=== PATIENT | female | born 1985 | race Hispanic/Latino ===

== ENCOUNTER 2016-09-14 18:23 | Inpatient (IN) | payer OTHER ==
[~2016-09-14] VITALS: Ht 154.9 cm; Wt 54.1 kg
[~2016-09-14 18:23] MED LIST: AUGMENTIN875 MG PO; CEPHALEXIN500 MG PO; HYDROCODON-ACE1 EAC7 PO; LANTUS 10100 UNITS/ SC; METFORMIN HCL1000 M3 PO; METFORMIN HCL500 MG PO; NOVOLIN N100 UNITS/ SC; NOVOLOG PE100 UNITS/ SC; UNABLEOBTAIN; VIBRAMYCIN100 MG PO; ZOFRAN4 MG PO
[2016-09-14 19:01] LABS: MCH 27.5 PG (29.0-34.0); MCHC 34.2 G/DL (30.0-36.0); MCV 80.4 FL (83-99); MEAN PLAT.VOLUME 11.3 uM^3 (9.5-12.4); PLATELET COUNT 321 K/uL (156-360); RBC DIS.WIDTH-CV 12.7 % (11.8-14.6); RBC DIS.WIDTH-SD 36.5 % (39-53); RED BLOOD COUNT 4.48 M/uL (3.80-5.20); WHITE BLOOD COUNT 13.7 K/uL (4.1-10.2)
[2016-09-14 19:02] LABS: CARBON DIOXIDE (BICARBONATE) 32.6 MEQ/L (20-31)
[2016-09-14 19:08] LABS: CHLORIDE 91 mEq/L (99-109)
[2016-09-14 19:09] LABS: POTASSIUM 3.5 mEq/L (3.7-5.4); SODIUM 130 mEq/L (136-147)
[2016-09-14 19:12] LABS: ANION GAP 15 MEQ/L (2-14)
[2016-09-14 19:13] LABS: TOTAL BILIRUBIN 0.3 mg/dL (0.0-1.0)
[2016-09-14 19:14] LABS: ALKALINE PHOSPHATASE 368 IU/L (3-129)
[2016-09-14 19:14] LABS: ADD MIUA? YES; BILIRUBIN NEGATIVE; BLOOD MODERATE; COLOR YELLOW ((YELLOW)); GLUCOSE (STRIP) >=500; KETONES 20; LEUKOCYTES NEGATIVE; NITRITE NEGATIVE; PROTEIN (STRIP) >=500; SPECIFIC GRAVITY 1.017 (1.000-1.030); UROBILINOGEN 0.2 MG/DL (0.2-1.0)
[2016-09-14 19:15] LABS: GFR ESTIMATE (CALCULATED) 35 mL/min/
[2016-09-14 19:16] LABS: UREA NITROGEN (BUN) 40 mg/dL (9-23)
[2016-09-14 19:19] LABS: GLUCOSE 740 mg/dL (70-99)
[2016-09-14 19:23] LABS: QUANTITATIVE HCG < 4.0 MIU/ML
[2016-09-14 19:23] LABS: BACTERIA RARE /HPF; EPITHELIAL CELLS 1+ /HPF; HYALINE CASTS 0-5 /LPF; MUCUS TRACE /LPF; RED BLOOD CELLS TNTC /HPF (0-5); WHITE BLOOD CELLS 15-20 /HPF (0-5)
[2016-09-14 21:31] LABS: CHLORIDE 95 mEq/L (99-109); POTASSIUM 2.9 mEq/L (3.7-5.4); SODIUM 134 mEq/L (136-147)
[2016-09-14 21:35] LABS: ANION GAP 12 MEQ/L (2-14)
[2016-09-14 21:37] LABS: GFR ESTIMATE (CALCULATED) 40 mL/min/
[2016-09-14 21:38] LABS: UREA NITROGEN (BUN) 38 mg/dL (9-23)
[2016-09-14 21:41] LABS: GLUCOSE 436 mg/dL (70-99)
[2016-09-15] VITALS (7 sets, daily range): BP systolic 93–172; BP diastolic 52–80
[2016-09-15 06:09] LABS: POINT-OF-CARE METER ID UU14162508
[2016-09-15 06:59] LABS: EOSINOPHIL (%) 0.6 % (0-5); EOSINOPHIL COUNT 0.1 K/uL (0-0.3); HEMATOCRIT 28.9 % (36.0-46.0); IMMATURE GRANULOCYTE (%) 0.3 % (0.0-0.7); INSTRUMENT ABS NEUTROPHIL CT 7.9 K/uL; LYMPHOCYTE COUNT 2.2 K/uL (1.0-2.8); MCH 27.2 PG (29.0-34.0); MCHC 33.6 G/DL (30.0-36.0); MCV 81.2 FL (83-99); MEAN PLAT.VOLUME 11.2 uM^3 (9.5-12.4); MONOCYTE (%) 7.8 % (3-12); MONOCYTE COUNT 0.9 K/uL (0-0.8); NEUTROPHIL COUNT 7.9 K/uL (1.8-6.4); PLATELET COUNT 293 K/uL (156-360); RBC DIS.WIDTH-CV 12.7 % (11.8-14.6); RBC DIS.WIDTH-SD 37.4 % (39-53); WHITE BLOOD COUNT 11.2 K/uL (4.1-10.2)
[2016-09-15 07:15] LABS: ANION GAP 8 MEQ/L (2-14); CHLORIDE 105 MEQ/L (99-109); GFR ESTIMATE (CALCULATED) 51 mL/min/; POTASSIUM 3.3 MEQ/L (3.7-5.4); SAMPLE HEMOLYSIS CHECK 0; SAMPLE ICTERIC CHECK 0; SAMPLE LIPEMIA CHECK 0; UREA NITROGEN (BUN) 34 mg/dL (9-23)
[2016-09-15 07:17] LABS: GLUCOSE 126 mg/dL (70-99); SODIUM 141 MEQ/L (136-147)
[2016-09-15 07:24] LABS: RED BLOOD COUNT 3.56 M/uL (3.80-5.20)
[2016-09-15 11:37] LABS: POINT-OF-CARE METER ID UU14162508
[2016-09-15 11:40] LABS: POINT-OF-CARE METER ID UU13113702; POINT-OF-CARE USER ID 611181311
[2016-09-15 11:40] LABS: POINT-OF-CARE METER ID UU13113778
[2016-09-15 14:43] LABS: POINT-OF-CARE METER ID UU14162508
[2016-09-15 16:51] LABS: MAGNESIUM 1.6 mg/dl (1.3-2.7)
[2016-09-15 21:33] LABS: POINT-OF-CARE METER ID UU14162508
[2016-09-16] VITALS (8 sets, daily range): BP systolic 76–199; BP diastolic 50–99
[2016-09-16 02:44] LABS: POINT-OF-CARE METER ID UU14162508
[2016-09-16 07:11] LABS: EOSINOPHIL (%) 1.1 % (0-5); EOSINOPHIL COUNT 0.1 K/uL (0-0.3); HEMATOCRIT 28.9 % (36.0-46.0); IMMATURE GRANULOCYTE (%) 0.3 % (0.0-0.7); INSTRUMENT ABS NEUTROPHIL CT 6.2 K/uL; MCH 27.7 PG (29.0-34.0); MCHC 33.2 G/DL (30.0-36.0); MCV 83.3 FL (83-99); MONOCYTE (%) 6.3 % (3-12); MONOCYTE COUNT 0.6 K/uL (0-0.8); NEUTROPHIL (%) 69.6 % (45-76); NEUTROPHIL COUNT 6.2 K/uL (1.8-6.4); PLATELET COUNT 277 K/uL (156-360); RBC DIS.WIDTH-CV 13.2 % (11.8-14.6); RBC DIS.WIDTH-SD 39.7 % (39-53); RED BLOOD COUNT 3.47 M/uL (3.80-5.20); WHITE BLOOD COUNT 8.9 K/uL (4.1-10.2)
[2016-09-16 07:31] LABS: ANION GAP 10 MEQ/L (2-14); CHLORIDE 104 MEQ/L (99-109); GFR ESTIMATE (CALCULATED) 37 mL/min/; GLUCOSE 114 mg/dL (70-99); IRON 44 MCG/DL (35-150); POTASSIUM 3.1 MEQ/L (3.7-5.4); SAMPLE HEMOLYSIS CHECK 0; SAMPLE ICTERIC CHECK 0; SAMPLE LIPEMIA CHECK 0; SODIUM 140 MEQ/L (136-147); UREA NITROGEN (BUN) 29 mg/dL (9-23)
[2016-09-16 07:32] LABS: C3 COMPLEMENT 142 MG/DL (58-170); C4 COMPLEMENT 35 MG/DL (10-40)
[2016-09-16 09:58] LABS: HBSG INDEX 0.27; HPCA INDEX 0.15
[2016-09-16 09:59] LABS: AHBS INDEX 13.56; HEPATITIS B SURFACE ANTIBODY REACTIVE
[2016-09-16 10:11] LABS: POINT-OF-CARE USER ID 612031306
[2016-09-16 13:27] LABS: URINE TOTAL PROTEIN 169 MG/DL (0-10)
[2016-09-16 14:27] LABS: POINT-OF-CARE USER ID 612031306
[2016-09-16 14:57] LABS: IFE GEL NO. 53-7
[2016-09-16 18:07] LABS: POINT-OF-CARE METER ID UU14162508
[2016-09-16 22:09] LABS: POINT-OF-CARE METER ID UU14162508
[2016-09-17 03:55] VITALS: BP 121/63
[2016-09-17 07:08] LABS: EOSINOPHIL (%) 0.5 % (0-5); EOSINOPHIL COUNT 0.1 K/uL (0-0.3); IMMATURE GRANULOCYTE (%) 0.5 % (0.0-0.7); IMMATURE GRANULOCYTE COUNT 0.1 K/uL; INSTRUMENT ABS NEUTROPHIL CT 6.9 K/uL; LYMPHOCYTE COUNT 2.8 K/uL (1.0-2.8); MCH 27.3 PG (29.0-34.0); MCHC 31.9 G/DL (30.0-36.0); MCV 85.5 FL (83-99); MEAN PLAT.VOLUME 11.1 uM^3 (9.5-12.4); MONOCYTE (%) 8.2 % (3-12); MONOCYTE COUNT 0.9 K/uL (0-0.8); NEUTROPHIL (%) 64.3 % (45-76); NEUTROPHIL COUNT 6.9 K/uL (1.8-6.4); PLATELET COUNT 352 K/uL (156-360); RBC DIS.WIDTH-CV 13.6 % (11.8-14.6); RBC DIS.WIDTH-SD 42.2 % (39-53); WHITE BLOOD COUNT 10.7 K/uL (4.1-10.2)
[2016-09-17 07:13] LABS: RED BLOOD COUNT 4.21 M/uL (3.80-5.20)
[2016-09-17 07:29] LABS: ANION GAP 7 MEQ/L (2-14); CHLORIDE 105 MEQ/L (99-109); GFR ESTIMATE (CALCULATED) 43 mL/min/; GLUCOSE 95 mg/dL (70-99); SAMPLE HEMOLYSIS CHECK 0; SAMPLE ICTERIC CHECK 0; SAMPLE LIPEMIA CHECK 0; SODIUM 137 MEQ/L (136-147); UREA NITROGEN (BUN) 23 mg/dL (9-23)
[2016-09-17 07:35] LABS: POTASSIUM 4.6 MEQ/L (3.7-5.4)
[2016-09-17 09:03] VITALS: BP 161/97
[2016-09-17 09:15] LABS: MYELOPEROXIDASE ANTIBODY (MPO) <1.0 AI (<1.0); PROTEINASE-3 ANTIBODY+ <1.0 AI (<1.0)
[2016-09-17 11:30] VITALS: BP 163/92
[2016-09-17 15:55] VITALS: BP 157/98
[2016-09-17] MEDS ORDERED: CIPRO500 MG PO (17:13)
[2016-09-17] MEDS ORDERED: NOVOLOG PE100 UNITS/ SC (17:13)
[2016-09-17] MEDS ORDERED: LEVEMIR100 UNIT/2 SC (17:13)
[2016-09-17] MEDS ORDERED: AMLODIPINE BESYL5 MG PO (17:13)
[2016-09-18 14:47] LABS: IFE GEL NO. 54-1
[2016-09-20 21:39] LABS: Cryoglobulin, Qualitative None Detected (None Detected)
== END 2016-09-17 19:34 | disposition home or self-care (01) | DRG 690 ==
LOC: EME 18:23 → 2EAST 22:25 → EDOF 22:25 → 2EAST 09-15
PROVIDERS: Emergency Medicine; Hospitalist; Internal Medicine
DX: N10 Acute pyelonephritis (principal); N18.3 Chronic kidney disease, stage 3 (moderate); I12.9 Hypertensive chronic kidney disease with stage 1 through stage 4 chronic kidney disease, or unspecified chronic kidney disease; E87.6 Hypokalemia; Z91.14 Patient's other noncompliance with medication regimen; N17.9 Acute kidney failure, unspecified; E87.1 Hypo-osmolality and hyponatremia; E10.22 Type 1 diabetes mellitus with diabetic chronic kidney disease; E10.65 Type 1 diabetes mellitus with hyperglycemia; D50.9 Iron deficiency anemia, unspecified; N28.1 Cyst of kidney, acquired; F32.9 Major depressive disorder, single episode, unspecified; E86.0 Dehydration; R80.9 Proteinuria, unspecified; N20.0 Calculus of kidney; N12 Tubulo-interstitial nephritis, not specified as acute or chronic
CPT/HCPCS: 74176; 76770; 80048; 80048 91; 80053; 80069; 81003; 82010; 82436; 82570; 82595 90; 82803; 82948; 83021 90; 83540; 83735; 84133; 84156; 84300; 84466; 84702; 85025; 85027; 86021 90; 86038; 86160; 86334; 86335; 86706; 86803; 87040; 87086; 87340; 93306; 93970; 93975; 99281; 99284; J0360; J0692; J0696; J1644; J1815; J2270; J2405; J2765; J3475; J3480; J7030; J7050; J7120

== ENCOUNTER 2017-05-08 23:33 | Emergency (ER) | payer SELFPAY ==
[~2017-05-08] VITALS: Ht 147.3 cm; Wt 57.6 kg
[~2017-05-08 23:33] MED LIST changes: +AMLODIPINE BESYL5 MG PO; +CIPRO500 MG PO; +LEVEMIR100 UNIT/2 SC
[2017-05-09] MEDS ORDERED: BACTRIM,SEPT1 TABLET PO (00:17)
[2017-05-09] MEDS ORDERED: ULTRACET1 TABLET PO (00:17)
[2017-05-09 00:22] VITALS: BP 193/122
== END 2017-05-09 00:53 | disposition home or self-care (01) ==
LOC: EME 23:33 → EXP 23:33
DX: L98.9 Disorder of the skin and subcutaneous tissue, unspecified (principal); E11.65 Type 2 diabetes mellitus with hyperglycemia; E11.22 Type 2 diabetes mellitus with diabetic chronic kidney disease; I12.9 Hypertensive chronic kidney disease with stage 1 through stage 4 chronic kidney disease, or unspecified chronic kidney disease; N18.9 Chronic kidney disease, unspecified; Z79.4 Long term (current) use of insulin; R51 Headache
CPT/HCPCS: 99281; 99284

== ENCOUNTER 2017-05-15 19:23 | Emergency (ER) | payer SELFPAY ==
[~2017-05-15] VITALS: Ht 144.8 cm; Wt 54.5 kg
[~2017-05-15 19:23] MED LIST changes: +BACTRIM,SEPT1 TABLET PO; +ULTRACET1 TABLET PO
[2017-05-15] MEDS ORDERED: ZOFRAN ODT4 MG PO (20:58)
[2017-05-15] MEDS ORDERED: VIBRAMYCIN100 MG PO (20:58)
[2017-05-15 21:02] LABS: BASOPHIL (%) 0.3 % (0-1); BASOPHIL COUNT 0.1 K/uL (0-0.1); EOSINOPHIL (%) 0.7 % (0-5); EOSINOPHIL COUNT 0.1 K/uL (0-0.3); HEMATOCRIT 28.5 % (36.0-46.0); HEMOGLOBIN 9.8 G/DL (11.9-15.5); IMMATURE GRANULOCYTE (%) 0.8 % (0.0-0.7); LYMPHOCYTE (%) 13.9 % (15-42); LYMPHOCYTE COUNT 2.6 K/uL (1.0-2.8); MCH 27.4 PG (29.0-34.0); MCHC 34.4 G/DL (30.0-36.0); MCV 79.6 FL (83-99); MONOCYTE (%) 4.4 % (3-12); MONOCYTE COUNT 0.8 K/uL (0-0.8); NEUTROPHIL (%) 79.9 % (45-76); NEUTROPHIL COUNT 14.9 K/uL (1.8-6.4); PLATELET COUNT 431 K/uL (156-360); RBC DIS.WIDTH-CV 12.5 % (11.8-14.6); RBC DIS.WIDTH-SD 35.8 % (39-53); RED BLOOD COUNT 3.58 M/uL (3.80-5.20); WHITE BLOOD COUNT 18.7 K/uL (4.1-10.2)
[2017-05-15 21:10] LABS: ALBUMIN 2.8 g/dL (3.2-4.8); CHLORIDE 86 mEq/L (99-109); SODIUM 128 mEq/L (136-147)
[2017-05-15 21:12] LABS: GLUCOSE 322 mg/dL (70-99); TOTAL PROTEIN 7.5 g/dL (6.4-8.3)
[2017-05-15 21:14] LABS: TOTAL BILIRUBIN 0.2 mg/dL (0.0-1.0)
[2017-05-15 21:16] LABS: ALKALINE PHOSPHATASE 323 IU/L (3-129); CREATININE 7.3 mg/dL (0.6-1.3); GFR ESTIMATE (CALCULATED) 7 mL/min/
[2017-05-15 21:17] LABS: UREA NITROGEN (BUN) 87 mg/dL (9-23)
[2017-05-15 21:18] LABS: AST (GOT) 13 IU/L (2-34)
[2017-05-15 21:19] LABS: ALT (GPT) 15 IU/L (3-49); LIPASE 126 U/L (1.0-51.0)
[2017-05-15 21:25] LABS: QUANTITATIVE HCG < 4.0 MIU/ML
[2017-05-15 21:27] VITALS: BP 129/76
[2017-05-15 22:02] LABS: APPEARANCE SL.HAZY ((CLEAR)); BILIRUBIN NEGATIVE; BLOOD SMALL; COLOR YELLOW ((YELLOW)); GLUCOSE (STRIP) >=500; KETONES NEGATIVE; LEUKOCYTES SMALL; NITRITE NEGATIVE; PROTEIN (STRIP) >=500; SPECIFIC GRAVITY 1.008 (1.000-1.030); UROBILINOGEN 0.2 MG/DL (0.2-1.0)
[2017-05-15 22:07] LABS: BACTERIA RARE /HPF; EPITHELIAL CELLS 1+ /HPF; MUCUS TRACE /LPF; RED BLOOD CELLS 0-5 /HPF (0-5); WHITE BLOOD CELLS 20-30 /HPF (0-5)
== END 2017-05-15 21:31 | disposition home or self-care (01) ==
LOC: EME 19:23
PROVIDERS: Physician Assistant
PROC: 0H90XZZ Drainage of Scalp Skin, External Approach (ICD-10-PCS; principal; 2017-05-15)
DX: L02.811 Cutaneous abscess of head [any part, except face] (principal); R11.2 Nausea with vomiting, unspecified; R10.13 Epigastric pain; I12.9 Hypertensive chronic kidney disease with stage 1 through stage 4 chronic kidney disease, or unspecified chronic kidney disease; E11.22 Type 2 diabetes mellitus with diabetic chronic kidney disease; N18.9 Chronic kidney disease, unspecified
CPT/HCPCS: 80053; 81003; 83690; 84702; 85025; 99281; 99285

== ENCOUNTER 2017-05-20 12:52 | Inpatient (IN) | payer OTHER ==
[~2017-05-20] VITALS: Ht 160 cm; Wt 56.8 kg
[2017-05-20] VITALS (7 sets, daily range): BP systolic 71–154; BP diastolic 35–78
[~2017-05-20 12:52] MED LIST changes: +ZOFRAN ODT4 MG PO
[2017-05-20 14:12] LABS: HEMATOCRIT 30.2 % (36.0-46.0); MCH 27.2 PG (29.0-34.0); MCHC 33.1 G/DL (30.0-36.0); MCV 82.3 FL (83-99); PLATELET COUNT 501 K/uL (156-360); RBC DIS.WIDTH-CV 12.5 % (11.8-14.6); RED BLOOD COUNT 3.67 M/uL (3.80-5.20); WHITE BLOOD COUNT 13.8 K/uL (4.1-10.2)
[2017-05-20 14:17] LABS: CHLORIDE 91 mEq/L (99-109); POTASSIUM 3.6 mEq/L (3.7-5.4); SODIUM 140 mEq/L (136-147)
[2017-05-20 14:18] LABS: APPEARANCE SL.HAZY ((CLEAR)); BILIRUBIN NEGATIVE; BLOOD NEGATIVE; COLOR YELLOW ((YELLOW)); GLUCOSE (STRIP) >=500; KETONES 20; LEUKOCYTES NEGATIVE; NITRITE NEGATIVE; PROTEIN (STRIP) >=500; SPECIFIC GRAVITY 1.015 (1.000-1.030); UROBILINOGEN 0.2 MG/DL (0.2-1.0)
[2017-05-20 14:22] LABS: CREATININE 6.5 mg/dL (0.6-1.3); GFR ESTIMATE (CALCULATED) 8 mL/min/
[2017-05-20 14:23] LABS: UREA NITROGEN (BUN) 91 mg/dL (9-23)
[2017-05-20 14:26] LABS: GLUCOSE 579 mg/dL (70-99)
[2017-05-20 14:30] LABS: QUANTITATIVE HCG < 4.0 MIU/ML
[2017-05-20 14:32] LABS: BACTERIA RARE /HPF; EPITHELIAL CELLS 1+ /HPF; HYALINE CASTS 0-5 /LPF; MUCUS TRACE /LPF; RED BLOOD CELLS 0-5 /HPF (0-5); UCUL ADDED? NO; WHITE BLOOD CELLS 0-5 /HPF (0-5)
[2017-05-20 15:18] LABS: CARBON DIOXIDE (BICARBONATE) 32.6 MEQ/L (20-31)
[2017-05-20 15:19] LABS: TOTAL PROTEIN 7.7 g/dL (6.4-8.3)
[2017-05-20 15:20] LABS: TOTAL BILIRUBIN 0.2 mg/dL (0.0-1.0)
[2017-05-20 15:21] LABS: ALKALINE PHOSPHATASE 320 IU/L (3-129)
[2017-05-20 15:24] LABS: AST (GOT) 17 IU/L (2-34); DIRECT BILIRUBIN 0.1 mg/dL (0.0-0.3)
[2017-05-20 15:25] LABS: ALT (GPT) 21 IU/L (3-49); LIPASE 30 U/L (1.0-51.0)
[2017-05-20 17:59] LABS: CARBON DIOXIDE (BICARBONATE) 27.9 MEQ/L (20-31)
[2017-05-20 18:12] LABS: CHLORIDE 100 mEq/L (99-109); POTASSIUM 3.1 mEq/L (3.7-5.4); SODIUM 143 mEq/L (136-147)
[2017-05-20 18:15] LABS: GLUCOSE 531 mg/dL (70-99)
[2017-05-20 18:18] LABS: CREATININE 5.6 mg/dL (0.6-1.3); GFR ESTIMATE (CALCULATED) 9 mL/min/
[2017-05-20 18:19] LABS: UREA NITROGEN (BUN) 86 mg/dL (9-23)
[2017-05-20 18:38] LABS: MAGNESIUM 1.2 mg/dL (1.3-2.7)
[2017-05-20 19:08] LABS: Estimated Average Glucose 303 mg/dL (70-123); HEMOGLOBIN A1c (GLYCOHEMOGLOB) 12.2 % HGB (Below 5.7)
[2017-05-21] VITALS (24 sets, daily range): BP systolic 104–181; BP diastolic 59–106
[2017-05-21 00:49] LABS: POTASSIUM 3.6 mEq/L (3.7-5.4); SODIUM 148 mEq/L (136-147)
[2017-05-21 00:54] LABS: GFR ESTIMATE (CALCULATED) 11 mL/min/; PHOSPHORUS 3.8 mg/dL (2.5-4.9)
[2017-05-21 00:55] LABS: UREA NITROGEN (BUN) 74 mg/dL (9-23)
[2017-05-21 01:02] LABS: CHLORIDE 111 mEq/L (99-109); GLUCOSE 92 mg/dL (70-99)
[2017-05-21 04:27] LABS: BASOPHIL (%) 0.2 % (0-1); BASOPHIL COUNT 0.1 K/uL (0-0.1); EOSINOPHIL (%) 0 % (0-5); HEMATOCRIT 25.5 % (36.0-46.0); HEMOGLOBIN 8.4 G/DL (11.9-15.5); IMMATURE GRANULOCYTE (%) 0.8 % (0.0-0.7); LYMPHOCYTE (%) 5.2 % (15-42); LYMPHOCYTE COUNT 1.6 K/uL (1.0-2.8); MCH 27.6 PG (29.0-34.0); MCHC 32.9 G/DL (30.0-36.0); MCV 83.9 FL (83-99); MONOCYTE (%) 4.7 % (3-12); MONOCYTE COUNT 1.4 K/uL (0-0.8); NEUTROPHIL (%) 89.1 % (45-76); NEUTROPHIL COUNT 26.3 K/uL (1.8-6.4); PLATELET COUNT 364 K/uL (156-360); RBC DIS.WIDTH-CV 12.8 % (11.8-14.6); RBC DIS.WIDTH-SD 39.1 % (39-53); RED BLOOD COUNT 3.04 M/uL (3.80-5.20); WHITE BLOOD COUNT 29.6 K/uL (4.1-10.2)
[2017-05-21 04:34] LABS: ALBUMIN 2.2 g/dL (3.2-4.8); CHLORIDE 109 mEq/L (99-109); POTASSIUM 3.4 mEq/L (3.7-5.4); SODIUM 144 mEq/L (136-147)
[2017-05-21 04:40] LABS: CREATININE 4.8 mg/dL (0.6-1.3); GFR ESTIMATE (CALCULATED) 11 mL/min/; PHOSPHORUS 3.9 mg/dL (2.5-4.9)
[2017-05-21 04:41] LABS: UREA NITROGEN (BUN) 69 mg/dL (9-23)
[2017-05-21 04:42] LABS: GLUCOSE 197 mg/dL (70-99); MAGNESIUM 2.2 mg/dL (1.3-2.7)
[2017-05-21 08:23] LABS: CHLORIDE 111 MEQ/L (99-109); POTASSIUM 3.2 MEQ/L (3.7-5.4); SODIUM 146 MEQ/L (136-147)
[2017-05-21 08:29] LABS: CREATININE 4.3 MG/DL (0.6-1.3); GFR ESTIMATE (CALCULATED) 13 mL/min/; GLUCOSE 165 mg/dL (70-99); PHOSPHORUS 3.6 mg/dL (2.5-4.9); UREA NITROGEN (BUN) 66 mg/dL (9-23)
[2017-05-21 13:12] LABS: CHLORIDE 108 MEQ/L (99-109); POTASSIUM 3.3 MEQ/L (3.7-5.4); SODIUM 143 MEQ/L (136-147)
[2017-05-21 13:17] LABS: GFR ESTIMATE (CALCULATED) 14 mL/min/; GLUCOSE 170 mg/dL (70-99); PHOSPHORUS 3.6 mg/dL (2.5-4.9); UREA NITROGEN (BUN) 61 mg/dL (9-23)
[2017-05-21 15:56] LABS: CHLORIDE 108 MEQ/L (99-109); POTASSIUM 2.9 MEQ/L (3.7-5.4); SODIUM 140 MEQ/L (136-147)
[2017-05-21 16:02] LABS: CREATININE 3.9 MG/DL (0.6-1.3); GFR ESTIMATE (CALCULATED) 14 mL/min/; GLUCOSE 148 mg/dL (70-99); PHOSPHORUS 3.2 mg/dL (2.5-4.9); UREA NITROGEN (BUN) 56 mg/dL (9-23)
[2017-05-21 17:13] LABS: IRON 85 MCG/DL (35-150); TRANSFERRIN (TIBC) 118.3 mg/dL (215-380); TRANSFERRIN SATUR. 72 % (20-55)
[2017-05-21 20:11] LABS: CHLORIDE 108 MEQ/L (99-109); SODIUM 139 MEQ/L (136-147)
[2017-05-21 20:16] LABS: CREATININE 3.7 MG/DL (0.6-1.3); GFR ESTIMATE (CALCULATED) 15 mL/min/; GLUCOSE 163 mg/dL (70-99); PHOSPHORUS 3.3 mg/dL (2.5-4.9); UREA NITROGEN (BUN) 52 mg/dL (9-23)
[2017-05-22] VITALS (23 sets, daily range): BP systolic 108–193; BP diastolic 56–95
[2017-05-22 01:17] LABS: CHLORIDE 107 mEq/L (99-109); POTASSIUM 3.4 mEq/L (3.7-5.4); SODIUM 138 mEq/L (136-147)
[2017-05-22 01:19] LABS: GLUCOSE 177 mg/dL (70-99)
[2017-05-22 01:23] LABS: CREATININE 3.8 mg/dL (0.6-1.3); GFR ESTIMATE (CALCULATED) 15 mL/min/
[2017-05-22 01:24] LABS: UREA NITROGEN (BUN) 47 mg/dL (9-23)
[2017-05-22 06:25] LABS: CHLORIDE 108 MEQ/L (99-109); CREATININE 3.9 MG/DL (0.6-1.3); GFR ESTIMATE (CALCULATED) 14 mL/min/; MAGNESIUM 1.4 mg/dl (1.3-2.7); PHOSPHORUS 3.1 mg/dL (2.5-4.9); SODIUM 140 MEQ/L (136-147); UREA NITROGEN (BUN) 43 mg/dL (9-23)
[2017-05-22 06:26] LABS: GLUCOSE 88 mg/dL (70-99)
[2017-05-22 15:54] LABS: BASOPHIL (%) 0.4 % (0-1); BASOPHIL COUNT 0.1 K/uL (0-0.1); EOSINOPHIL (%) 0.5 % (0-5); EOSINOPHIL COUNT 0.1 K/uL (0-0.3); HEMATOCRIT 29.2 % (36.0-46.0); HEMOGLOBIN 9.1 G/DL (11.9-15.5); IMMATURE GRANULOCYTE (%) 0.9 % (0.0-0.7); LYMPHOCYTE (%) 15.9 % (15-42); LYMPHOCYTE COUNT 2.4 K/uL (1.0-2.8); MCH 27.2 PG (29.0-34.0); MCHC 31.2 G/DL (30.0-36.0); MCV 87.4 FL (83-99); MONOCYTE (%) 5.3 % (3-12); MONOCYTE COUNT 0.8 K/uL (0-0.8); NEUTROPHIL COUNT 11.7 K/uL (1.8-6.4); RBC DIS.WIDTH-CV 12.7 % (11.8-14.6); RED BLOOD COUNT 3.34 M/uL (3.80-5.20); WHITE BLOOD COUNT 15.2 K/uL (4.1-10.2)
[2017-05-22 16:28] LABS: CHLORIDE 108 MEQ/L (99-109); CREATININE 3.5 MG/DL (0.6-1.3); GFR ESTIMATE (CALCULATED) 16 mL/min/; PHOSPHORUS 3.4 mg/dL (2.5-4.9); SODIUM 136 MEQ/L (136-147); UREA NITROGEN (BUN) 38 mg/dL (9-23)
[2017-05-22 16:29] LABS: GLUCOSE 162 mg/dL (70-99); MAGNESIUM 2.2 mg/dl (1.3-2.7); POTASSIUM 4.3 MEQ/L (3.7-5.4)
[2017-05-22 16:41] LABS: ANISOCYTOSIS 1+; ATYPICAL LYMPHOCYTE 0.9 %; BAND NEUTROPHILS 1.7 % (0-8.0); EOSINOPHIL ABS CT 0.1; EOSINOPHILS 0.8 % (0-5.0); HYPOCHROMASIA 1+; LYMPHOCYTES 9.4 % (15.0-45.0); MICROCYTOSIS 1+; MONOCYTES 3.4 % (0-9.0); OVALOCYTES 1+; PLATELET CLUMPS PRESENT - PLATELET COUNT APPEARS ADQ.; PLATELET COUNT 348 K/uL (156-360); POIKILOCYTOSIS 1+; SEG.NEUTROPHILS 83.8 % (46.0-76.0)
[2017-05-23] VITALS (19 sets, daily range): BP systolic 119–191; BP diastolic 66–95
[2017-05-23 04:52] LABS: ALBUMIN 2.2 g/dL (3.2-4.8)
[2017-05-23 04:53] LABS: CHLORIDE 108 mEq/L (99-109); SODIUM 136 mEq/L (136-147)
[2017-05-23 04:58] LABS: PHOSPHORUS 3.5 mg/dL (2.5-4.9)
[2017-05-23 04:59] LABS: CREATININE 3.2 mg/dL (0.6-1.3); GFR ESTIMATE (CALCULATED) 18 mL/min/
[2017-05-23 05:00] LABS: UREA NITROGEN (BUN) 32 mg/dL (9-23)
[2017-05-23 05:02] LABS: GLUCOSE 108 mg/dL (70-99); MAGNESIUM 1.6 mg/dL (1.3-2.7); POTASSIUM 3.4 mEq/L (3.7-5.4)
[2017-05-23] MEDS ORDERED: NOVOLIN N100 UNITS/ SC ×2 (09:26→09:27)
[2017-05-23 09:57] LABS: BASOPHIL (%) 0.3 % (0-1); EOSINOPHIL (%) 1.3 % (0-5); EOSINOPHIL COUNT 0.2 K/uL (0-0.3); HEMATOCRIT 27.4 % (36.0-46.0); HEMOGLOBIN 8.9 G/DL (11.9-15.5); IMMATURE GRANULOCYTE (%) 0.7 % (0.0-0.7); LYMPHOCYTE (%) 19.6 % (15-42); LYMPHOCYTE COUNT 2.3 K/uL (1.0-2.8); MCH 27.9 PG (29.0-34.0); MCHC 32.5 G/DL (30.0-36.0); MCV 85.9 FL (83-99); MONOCYTE (%) 5.6 % (3-12); MONOCYTE COUNT 0.7 K/uL (0-0.8); NEUTROPHIL (%) 72.5 % (45-76); NEUTROPHIL COUNT 8.4 K/uL (1.8-6.4); RBC DIS.WIDTH-CV 12.9 % (11.8-14.6); RBC DIS.WIDTH-SD 40.4 % (39-53); RED BLOOD COUNT 3.19 M/uL (3.80-5.20); WHITE BLOOD COUNT 11.6 K/uL (4.1-10.2)
[2017-05-23] MEDS ORDERED: HYDROCHLOROTHIA25 MG PO (10:29)
[2017-05-23] MEDS ORDERED: LISINOPRIL40 MG PO (10:30)
[2017-05-23 10:35] LABS: PLATELET CLUMPS PRESENT - PLATELET COUNT APPEARS ADQ.; PLATELET COUNT UNABLE TO REPORT K/uL (156-360)
[2017-05-24 00:20] VITALS: BP 114/53
[2017-05-24 04:35] VITALS: BP 124/69
[2017-05-24 08:00] VITALS: BP 180/77
[2017-05-24 09:42] LABS: HEMATOCRIT 26.6 % (36.0-46.0); HEMOGLOBIN 8.6 G/DL (11.9-15.5); MCHC 32.3 G/DL (30.0-36.0); MCV 86.6 FL (83-99); PLATELET COUNT 317 K/uL (156-360); RBC DIS.WIDTH-SD 41.2 % (39-53); RED BLOOD COUNT 3.07 M/uL (3.80-5.20); WHITE BLOOD COUNT 10.2 K/uL (4.1-10.2)
[2017-05-24 10:11] LABS: CHLORIDE 105 MEQ/L (99-109); CREATININE 3.2 MG/DL (0.6-1.3); GFR ESTIMATE (CALCULATED) 18 mL/min/; GLUCOSE 152 mg/dL (70-99); SODIUM 136 MEQ/L (136-147); UREA NITROGEN (BUN) 28 mg/dL (9-23)
[2017-05-24 10:19] LABS: MAGNESIUM 1.5 mg/dl (1.3-2.7); POTASSIUM 4.4 MEQ/L (3.7-5.4)
[2017-05-24 11:50] VITALS: BP 154/72
[2017-05-24] MEDS ORDERED: ZOFRAN4 MG PO (12:44)
[2017-05-24 16:00] VITALS: BP 121/64
[2017-05-24 20:19] VITALS: BP 114/64
[2017-05-25] VITALS (7 sets, daily range): BP systolic 102–140; BP diastolic 57–79
[2017-05-25 06:41] LABS: BASOPHIL (%) 0.4 % (0-1); EOSINOPHIL (%) 1.2 % (0-5); EOSINOPHIL COUNT 0.1 K/uL (0-0.3); HEMOGLOBIN 7.7 G/DL (11.9-15.5); IMMATURE GRANULOCYTE (%) 0.4 % (0.0-0.7); LYMPHOCYTE (%) 31.4 % (15-42); LYMPHOCYTE COUNT 3.4 K/uL (1.0-2.8); MCH 27.3 PG (29.0-34.0); MCHC 32.1 G/DL (30.0-36.0); MCV 85.1 FL (83-99); MONOCYTE (%) 6.4 % (3-12); MONOCYTE COUNT 0.7 K/uL (0-0.8); NEUTROPHIL (%) 60.2 % (45-76); NEUTROPHIL COUNT 6.5 K/uL (1.8-6.4); PLATELET COUNT 294 K/uL (156-360); RBC DIS.WIDTH-CV 12.9 % (11.8-14.6); RED BLOOD COUNT 2.82 M/uL (3.80-5.20); WHITE BLOOD COUNT 10.8 K/uL (4.1-10.2)
[2017-05-25 07:12] LABS: CHLORIDE 107 MEQ/L (99-109); CREATININE 3.1 MG/DL (0.6-1.3); GFR ESTIMATE (CALCULATED) 19 mL/min/; POTASSIUM 3.8 MEQ/L (3.7-5.4); SODIUM 139 MEQ/L (136-147); UREA NITROGEN (BUN) 29 mg/dL (9-23)
[2017-05-25 07:21] LABS: GLUCOSE 85 mg/dL (70-99)
[2017-05-25 08:52] LABS: IMM.RETIC FRACTION 9.8 % (3-19); RETIC HGB EQUIVALENT 31.9 (28-36); RETICULOCYTE COUNT 1.9 % (0.5-1.8)
[2017-05-25 09:19] LABS: FERRITIN 118 NG/ML (10-291)
[2017-05-25 09:43] LABS: FOLIC ACID (FOLATE) 6.3 NG/ML (5.0-22.0)
[2017-05-26] VITALS (7 sets, daily range): BP systolic 92–169; BP diastolic 51–79
[2017-05-26 06:48] LABS: CHLORIDE 105 MEQ/L (99-109); CREATININE 3.5 MG/DL (0.6-1.3); GFR ESTIMATE (CALCULATED) 16 mL/min/; GLUCOSE 124 mg/dL (70-99); POTASSIUM 4.1 MEQ/L (3.7-5.4); SODIUM 138 MEQ/L (136-147); UREA NITROGEN (BUN) 36 mg/dL (9-23)
[2017-05-26 06:48] LABS: BASOPHIL (%) 0.3 % (0-1); EOSINOPHIL (%) 2.2 % (0-5); EOSINOPHIL COUNT 0.2 K/uL (0-0.3); HEMATOCRIT 22.4 % (36.0-46.0); HEMOGLOBIN 7.1 G/DL (11.9-15.5); IMMATURE GRANULOCYTE (%) 0.7 % (0.0-0.7); LYMPHOCYTE (%) 30.5 % (15-42); LYMPHOCYTE COUNT 3.2 K/uL (1.0-2.8); MCH 27.3 PG (29.0-34.0); MCHC 31.7 G/DL (30.0-36.0); MCV 86.2 FL (83-99); MONOCYTE (%) 7.1 % (3-12); MONOCYTE COUNT 0.8 K/uL (0-0.8); NEUTROPHIL (%) 59.2 % (45-76); NEUTROPHIL COUNT 6.2 K/uL (1.8-6.4); PLATELET COUNT 267 K/uL (156-360); RBC DIS.WIDTH-CV 13.1 % (11.8-14.6); RBC DIS.WIDTH-SD 41.1 % (39-53); WHITE BLOOD COUNT 10.5 K/uL (4.1-10.2)
[2017-05-27 00:10] VITALS: BP 101/56
[2017-05-27 03:57] VITALS: BP 105/53
[2017-05-27 05:49] LABS: BASOPHIL (%) 0.3 % (0-1); EOSINOPHIL (%) 1.8 % (0-5); EOSINOPHIL COUNT 0.3 K/uL (0-0.3); HEMATOCRIT 23.4 % (36.0-46.0); HEMOGLOBIN 7.4 G/DL (11.9-15.5); IMMATURE GRANULOCYTE (%) 0.5 % (0.0-0.7); LYMPHOCYTE (%) 26.8 % (15-42); LYMPHOCYTE COUNT 3.7 K/uL (1.0-2.8); MCH 27.4 PG (29.0-34.0); MCHC 31.6 G/DL (30.0-36.0); MCV 86.7 FL (83-99); MONOCYTE (%) 6.6 % (3-12); MONOCYTE COUNT 0.9 K/uL (0-0.8); NEUTROPHIL COUNT 8.9 K/uL (1.8-6.4); PLATELET COUNT 262 K/uL (156-360); RBC DIS.WIDTH-CV 13.1 % (11.8-14.6); RBC DIS.WIDTH-SD 40.9 % (39-53); WHITE BLOOD COUNT 13.9 K/uL (4.1-10.2)
[2017-05-27 06:13] LABS: CHLORIDE 101 MEQ/L (99-109); CREATININE 3.8 MG/DL (0.6-1.3); GFR ESTIMATE (CALCULATED) 15 mL/min/; GLUCOSE 98 mg/dL (70-99); POTASSIUM 4.2 MEQ/L (3.7-5.4); SODIUM 134 MEQ/L (136-147); UREA NITROGEN (BUN) 53 mg/dL (9-23)
[2017-05-27 08:11] VITALS: BP 118/56
[2017-05-27 13:00] LABS: GLUCOSE 273 mg/dL (70-99)
[2017-05-27 14:05] VITALS: BP 132/67
[2017-05-27] MEDS ORDERED: KEFLEX500 MG PO (14:07)
[2017-05-27] MEDS ORDERED: AMLODIPINE BESY10 MG PO (14:07)
[2017-05-27] MEDS ORDERED: FERROUS SULFAT325 MG PO (14:07)
[2017-05-27] MEDS ORDERED: TYLENOL ARTHRI650 MG PO (14:07)
[2017-05-27] MEDS ORDERED: NOVOLOG 10100 UNITS/ SC (14:07)
[2017-05-27 17:01] VITALS: BP 123/65
[2017-05-27 19:40] VITALS: BP 122/69
[2017-05-28 00:05] VITALS: BP 118/64
[2017-05-28 08:00] VITALS: BP 112/55
[2017-05-28 09:30] LABS: CHLORIDE 99 MEQ/L (99-109); CREATININE 3.5 MG/DL (0.6-1.3); GFR ESTIMATE (CALCULATED) 16 mL/min/; SODIUM 129 MEQ/L (136-147); UREA NITROGEN (BUN) 68 mg/dL (9-23)
[2017-05-28 09:31] LABS: GLUCOSE 114 mg/dL (70-99); POTASSIUM 5.3 MEQ/L (3.7-5.4)
[2017-05-28 11:39] LABS: LIPASE 179 U/L (1.0-51.0)
[2017-05-28 16:00] VITALS: BP 150/67
[2017-05-29 00:03] VITALS: BP 160/72
[2017-05-29 06:46] LABS: CHLORIDE 108 MEQ/L (99-109); CREATININE 3.5 MG/DL (0.6-1.3); GFR ESTIMATE (CALCULATED) 16 mL/min/; LIPASE 224 U/L (1.0-51.0); MAGNESIUM 1.4 mg/dl (1.3-2.7); UREA NITROGEN (BUN) 60 mg/dL (9-23)
[2017-05-29 06:49] LABS: GLUCOSE 178 mg/dL (70-99); POTASSIUM 4.1 MEQ/L (3.7-5.4); SODIUM 139 MEQ/L (136-147)
[2017-05-29 08:10] VITALS: BP 113/59
[2017-05-29 10:13] LABS: BASOPHIL (%) 0.2 % (0-1); EOSINOPHIL (%) 0.3 % (0-5); HEMATOCRIT 22.5 % (36.0-46.0); HEMOGLOBIN 7.2 G/DL (11.9-15.5); IMMATURE GRANULOCYTE (%) 0.7 % (0.0-0.7); LYMPHOCYTE (%) 24.1 % (15-42); LYMPHOCYTE COUNT 2.5 K/uL (1.0-2.8); MCH 27.3 PG (29.0-34.0); MCV 85.2 FL (83-99); MONOCYTE (%) 6.2 % (3-12); MONOCYTE COUNT 0.7 K/uL (0-0.8); NEUTROPHIL (%) 68.5 % (45-76); NEUTROPHIL COUNT 7.1 K/uL (1.8-6.4); PLATELET COUNT 295 K/uL (156-360); RBC DIS.WIDTH-CV 13.6 % (11.8-14.6); RBC DIS.WIDTH-SD 40.1 % (39-53); RED BLOOD COUNT 2.64 M/uL (3.80-5.20); WHITE BLOOD COUNT 10.4 K/uL (4.1-10.2)
[2017-05-29 16:33] VITALS: BP 118/62
[2017-05-29 23:22] VITALS: BP 124/55
[2017-05-30 05:59] LABS: BASOPHIL (%) 0.2 % (0-1); EOSINOPHIL (%) 1.1 % (0-5); EOSINOPHIL COUNT 0.1 K/uL (0-0.3); HEMATOCRIT 22.6 % (36.0-46.0); HEMOGLOBIN 7.1 G/DL (11.9-15.5); IMMATURE GRANULOCYTE (%) 0.4 % (0.0-0.7); LYMPHOCYTE (%) 25.7 % (15-42); LYMPHOCYTE COUNT 2.2 K/uL (1.0-2.8); MCH 27.4 PG (29.0-34.0); MCHC 31.4 G/DL (30.0-36.0); MCV 87.3 FL (83-99); MONOCYTE (%) 7.8 % (3-12); MONOCYTE COUNT 0.7 K/uL (0-0.8); NEUTROPHIL (%) 64.8 % (45-76); NEUTROPHIL COUNT 5.5 K/uL (1.8-6.4); PLATELET COUNT 292 K/uL (156-360); RBC DIS.WIDTH-CV 13.9 % (11.8-14.6); RBC DIS.WIDTH-SD 42.3 % (39-53); RED BLOOD COUNT 2.59 M/uL (3.80-5.20); WHITE BLOOD COUNT 8.5 K/uL (4.1-10.2)
[2017-05-30 06:23] LABS: CHLORIDE 107 MEQ/L (99-109); GFR ESTIMATE (CALCULATED) 19 mL/min/; GLUCOSE 204 mg/dL (70-99); LIPASE 56 U/L (1.0-51.0); POTASSIUM 4.8 MEQ/L (3.7-5.4); SODIUM 137 MEQ/L (136-147); UREA NITROGEN (BUN) 50 mg/dL (9-23)
[2017-05-30 09:06] VITALS: BP 115/57
[2017-05-30] MEDS ORDERED: NOVOLOG MI100 UNIT/3 SC ×2 (11:45)
== END 2017-05-30 15:00 | disposition home or self-care (01) | DRG 637 ==
LOC: EME 12:52 → EDOF 17:02 → 4WEST 17:02 → ENRESERV 17:08 → EDOF 17:11 → ENRESERV 17:13 → 4WEST 19:50 → ENRESERV 05-23 14:04 → 4SOUTH 05-23 14:50
PROVIDERS: Emergency Medicine; Hospitalist; Internal Medicine; Internal Medicine Critical Care Medicine; Physician Assistant; Specialist
DX: E10.10 Type 1 diabetes mellitus with ketoacidosis without coma (principal); N17.0 Acute kidney failure with tubular necrosis; L02.811 Cutaneous abscess of head [any part, except face]; E10.21 Type 1 diabetes mellitus with diabetic nephropathy; E87.6 Hypokalemia; F32.9 Major depressive disorder, single episode, unspecified; E87.1 Hypo-osmolality and hyponatremia; E83.42 Hypomagnesemia; E86.0 Dehydration; E10.22 Type 1 diabetes mellitus with diabetic chronic kidney disease; E10.69 Type 1 diabetes mellitus with other specified complication; I12.9 Hypertensive chronic kidney disease with stage 1 through stage 4 chronic kidney disease, or unspecified chronic kidney disease; N18.4 Chronic kidney disease, stage 4 (severe); E87.0 Hyperosmolality and hypernatremia; B95.61 Methicillin susceptible Staphylococcus aureus infection as the cause of diseases classified elsewhere; M86.9 Osteomyelitis, unspecified; D64.9 Anemia, unspecified; N20.0 Calculus of kidney; Z79.4 Long term (current) use of insulin; Z83.3 Family history of diabetes mellitus; Z87.442 Personal history of urinary calculi
CPT/HCPCS: 71046; 74176; 80048; 80048 91; 80069; 80076; 81003; 82010; 82570; 82607; 82728; 82746; 82803; 82948; 83036; 83540; 83605; 83690; 83735; 84100; 84156; 84466; 84702; 84999; 85025; 85027; 85046; 87040; 87070; 87075; 87077; 87147; 87186; 87205; 87641; 90686; 99281; 99285; J0690; J0696; J0881; J1644; J1815; J2405; J2765; J3370; J3475; J3480; J7030; J7042; J7050

== ENCOUNTER 2017-06-26 12:45 | Inpatient (IN) | payer OTHER ==
[~2017-06-26] VITALS: Ht 154.9 cm; Wt 55.2 kg
[~2017-06-26 12:45] MED LIST changes: +AMLODIPINE BESY10 MG PO; +FERROUS SULFAT325 MG PO; +HYDROCHLOROTHIA25 MG PO; +KEFLEX500 MG PO; +LISINOPRIL40 MG PO; +NOVOLOG 10100 UNITS/ SC; +NOVOLOG MI100 UNIT/3 SC; +TYLENOL ARTHRI650 MG PO
[2017-06-26 14:29] LABS: CHLORIDE 104 mEq/L (99-109); SODIUM 132 mEq/L (136-147)
[2017-06-26 14:30] LABS: GLUCOSE 136 mg/dL (70-99)
[2017-06-26 14:32] LABS: POTASSIUM 6.2 mEq/L (3.7-5.4)
[2017-06-26 14:34] LABS: CREATININE 4.7 mg/dL (0.6-1.3); GFR ESTIMATE (CALCULATED) 11 mL/min/
[2017-06-26 14:35] LABS: UREA NITROGEN (BUN) 85 mg/dL (9-23)
[2017-06-26 14:38] LABS: TROP-I INTERPRETATION NEGATIVE; TROPONIN-I < 0.01 ng/mL (0.0-0.30)
[2017-06-26 14:42] LABS: BASE EXCESS -11.6 mEq/L (-3 to +3); BICARBONATE 14.4 mEq/L (22-26); CARBOXY HGB 1.9 % (0-5); METHEMOGLOBIN 0.8 % (0-1.5); PCO2 32 mm Hg (35-45); PO2 53 mm Hg (80-100)
[2017-06-26 14:44] LABS: DEVICE NC; O2 FLOW 6 L/MIN; SITE RR
[2017-06-26 14:45] LABS: pH 7.26 (7.35-7.45)
[2017-06-26 14:53] LABS: BASOPHIL (%) 0.4 % (0-1); BASOPHIL COUNT 0.1 K/uL (0-0.1); EOSINOPHIL (%) 0.6 % (0-5); EOSINOPHIL COUNT 0.1 K/uL (0-0.3); HEMATOCRIT 27.4 % (36.0-46.0); IMMATURE GRANULOCYTE (%) 0.3 % (0.0-0.7); LYMPHOCYTE (%) 11.2 % (15-42); LYMPHOCYTE COUNT 1.4 K/uL (1.0-2.8); MCH 28.8 PG (29.0-34.0); MCHC 32.8 G/DL (30.0-36.0); MCV 87.8 FL (83-99); MONOCYTE (%) 6.3 % (3-12); MONOCYTE COUNT 0.8 K/uL (0-0.8); NEUTROPHIL (%) 81.2 % (45-76); NEUTROPHIL COUNT 9.8 K/uL (1.8-6.4); RBC DIS.WIDTH-CV 16.2 % (11.8-14.6); RBC DIS.WIDTH-SD 52.2 % (39-53); WHITE BLOOD COUNT 12.1 K/uL (4.1-10.2)
[2017-06-26 14:55] LABS: PLATELET COUNT 386 K/uL (156-360); RED BLOOD COUNT 3.12 M/uL (3.80-5.20)
[2017-06-26 15:06] LABS: PTT 36.7 SEC (25-37)
[2017-06-26 18:24] LABS: CHLORIDE 108 mEq/L (99-109); SODIUM 138 mEq/L (136-147)
[2017-06-26 18:29] LABS: CREATININE 4.8 mg/dL (0.6-1.3); GFR ESTIMATE (CALCULATED) 11 mL/min/
[2017-06-26 18:30] LABS: GLUCOSE 48 mg/dL (70-99); POTASSIUM 4.9 mEq/L (3.7-5.4); UREA NITROGEN (BUN) 82 mg/dL (9-23)
[2017-06-26 21:22] LABS: CHLORIDE 107 mEq/L (99-109); POTASSIUM 5.1 mEq/L (3.7-5.4); SODIUM 136 mEq/L (136-147)
[2017-06-26 21:28] LABS: CREATININE 4.8 mg/dL (0.6-1.3); GFR ESTIMATE (CALCULATED) 11 mL/min/
[2017-06-26 21:29] LABS: UREA NITROGEN (BUN) 87 mg/dL (9-23)
[2017-06-26 21:32] LABS: GLUCOSE 175 mg/dL (70-99)
[2017-06-26 22:30] VITALS: BP 149/65
[2017-06-27] VITALS (12 sets, daily range): BP systolic 105–140; BP diastolic 56–68
[2017-06-27 00:45] LABS: CHLORIDE 107 mEq/L (99-109); POTASSIUM 5.1 mEq/L (3.7-5.4); SODIUM 135 mEq/L (136-147)
[2017-06-27 00:49] LABS: GLUCOSE 282 mg/dL (70-99)
[2017-06-27 00:50] LABS: CREATININE 4.8 mg/dL (0.6-1.3); GFR ESTIMATE (CALCULATED) 11 mL/min/
[2017-06-27 00:51] LABS: UREA NITROGEN (BUN) 88 mg/dL (9-23)
[2017-06-27 05:57] LABS: HEMATOCRIT 26.9 % (36.0-46.0); HEMOGLOBIN 8.3 G/DL (11.9-15.5); MCH 27.8 PG (29.0-34.0); MCHC 30.9 G/DL (30.0-36.0); PLATELET COUNT 329 K/uL (156-360); RBC DIS.WIDTH-CV 16.3 % (11.8-14.6); RBC DIS.WIDTH-SD 54.3 % (39-53); RED BLOOD COUNT 2.99 M/uL (3.80-5.20); WHITE BLOOD COUNT 10.4 K/uL (4.1-10.2)
[2017-06-27 06:00] LABS: INTER. NORMALIZED RATIO 1.1
[2017-06-27 06:02] LABS: PTT 36.2 SEC (25-37)
[2017-06-27 07:28] LABS: ALBUMIN 2.5 G/DL (3.2-4.8); CHLORIDE 105 MEQ/L (99-109); CREATININE 4.9 MG/DL (0.6-1.3); GFR ESTIMATE (CALCULATED) 11 mL/min/; GLUCOSE 304 mg/dL (70-99); PHOSPHORUS 8.1 mg/dL (2.5-4.9); POTASSIUM 4.6 MEQ/L (3.7-5.4); SODIUM 134 MEQ/L (136-147); UREA NITROGEN (BUN) 81 mg/dL (9-23)
[2017-06-27 10:09] LABS: CHLORIDE 105 MEQ/L (99-109); GFR ESTIMATE (CALCULATED) 11 mL/min/; GLUCOSE 361 mg/dL (70-99); POTASSIUM 4.9 MEQ/L (3.7-5.4); SODIUM 135 MEQ/L (136-147); UREA NITROGEN (BUN) 84 mg/dL (9-23)
[2017-06-27 12:27] LABS: HEMOGLOBIN A1c (GLYCOHEMOGLOB) 6.8 % (Below 5.7)
[2017-06-27 12:59] LABS: CHLORIDE 104 MEQ/L (99-109); GFR ESTIMATE (CALCULATED) 11 mL/min/; GLUCOSE 400 mg/dL (70-99); POTASSIUM 4.6 MEQ/L (3.7-5.4); SODIUM 136 MEQ/L (136-147); UREA NITROGEN (BUN) 82 mg/dL (9-23)
[2017-06-27 16:26] LABS: CHLORIDE 104 MEQ/L (99-109); CREATININE 4.9 MG/DL (0.6-1.3); GFR ESTIMATE (CALCULATED) 11 mL/min/; GLUCOSE 386 mg/dL (70-99); POTASSIUM 4.4 MEQ/L (3.7-5.4); SODIUM 135 MEQ/L (136-147); UREA NITROGEN (BUN) 90 mg/dL (9-23)
[2017-06-27 23:51] LABS: CHLORIDE 104 MEQ/L (99-109); CREATININE 3.2 MG/DL (0.6-1.3); GFR ESTIMATE (CALCULATED) 18 mL/min/; GLUCOSE 223 mg/dL (70-99); POTASSIUM 4.1 MEQ/L (3.7-5.4); SODIUM 140 MEQ/L (136-147); UREA NITROGEN (BUN) 52 mg/dL (9-23)
[2017-06-28] VITALS (22 sets, daily range): BP systolic 0–140; BP diastolic 0–76
[2017-06-28 00:15] LABS: PHOSPHORUS 5.4 mg/dL (2.5-4.9)
[2017-06-28 06:06] LABS: PHOSPHORUS 6.5 mg/dL (2.5-4.9)
[2017-06-28 06:52] LABS: VANCOMYCIN, TROUGH 13.8 MCG/ML (10-20)
[2017-06-28 09:28] LABS: BASOPHIL (%) 0.1 % (0-1); EOSINOPHIL (%) 0 % (0-5); HEMATOCRIT 25.1 % (36.0-46.0); HEMOGLOBIN 7.9 G/DL (11.9-15.5); IMMATURE GRANULOCYTE (%) 0.4 % (0.0-0.7); LYMPHOCYTE (%) 5.8 % (15-42); LYMPHOCYTE COUNT 0.8 K/uL (1.0-2.8); MCH 27.2 PG (29.0-34.0); MCHC 31.5 G/DL (30.0-36.0); MCV 86.6 FL (83-99); MONOCYTE (%) 7.7 % (3-12); MONOCYTE COUNT 1.1 K/uL (0-0.8); PLATELET COUNT 336 K/uL (156-360); RBC DIS.WIDTH-CV 16.6 % (11.8-14.6); RBC DIS.WIDTH-SD 52.5 % (39-53); WHITE BLOOD COUNT 13.9 K/uL (4.1-10.2)
[2017-06-28 10:21] LABS: CHLORIDE 104 MEQ/L (99-109); CREATININE 3.5 MG/DL (0.6-1.3); GFR ESTIMATE (CALCULATED) 16 mL/min/; GLUCOSE 125 mg/dL (70-99); POTASSIUM 4.2 MEQ/L (3.7-5.4); SODIUM 139 MEQ/L (136-147); UREA NITROGEN (BUN) 57 mg/dL (9-23)
[2017-06-28 10:21] LABS: CHLORIDE 105 MEQ/L (99-109); CREATININE 3.7 MG/DL (0.6-1.3); GFR ESTIMATE (CALCULATED) 15 mL/min/; GLUCOSE 137 mg/dL (70-99); PHOSPHORUS 6.7 mg/dL (2.5-4.9); POTASSIUM 3.9 MEQ/L (3.7-5.4); SODIUM 141 MEQ/L (136-147); UREA NITROGEN (BUN) 57 mg/dL (9-23)
[2017-06-28 12:19] LABS: PHOSPHORUS 6.2 mg/dL (2.5-4.9)
[2017-06-28 13:54] LABS: QUANTITATIVE HCG < 4.0 MIU/ML
[2017-06-28 14:42] LABS: IRON 46 MCG/DL (35-150); TRANSFERRIN (TIBC) 162.9 mg/dL (215-380); TRANSFERRIN SATUR. 28 % (20-55)
[2017-06-29] VITALS (24 sets, daily range): BP systolic 101–167; BP diastolic 51–79
[2017-06-29 03:32] LABS: BASE EXCESS 0 mEq/L (-3 to +3); CARBOXY HGB 1.5 % (0-5); METHEMOGLOBIN 1.6 % (0-1.5)
[2017-06-29 03:33] LABS: BICARBONATE 24.8 mEq/L (22-26); COMMENTS - BLOOD GASES C+; DEVICE NCHH; FI02 100 %; O2 FLOW 70 L/MIN; PCO2 40 mm Hg (35-45); PO2 125 mm Hg (80-100); SITE LR; TOTAL RESP RATE 29 resp/min
[2017-06-29 07:08] LABS: ALBUMIN 2.3 G/DL (3.2-4.8); CHLORIDE 105 MEQ/L (99-109); CREATININE 4.3 MG/DL (0.6-1.3); GFR ESTIMATE (CALCULATED) 13 mL/min/; POTASSIUM 3.7 MEQ/L (3.7-5.4); SODIUM 140 MEQ/L (136-147); UREA NITROGEN (BUN) 68 mg/dL (9-23)
[2017-06-29 07:09] LABS: GLUCOSE 94 mg/dL (70-99)
[2017-06-29 12:03] LABS: HEPATITIS B SURFACE ANTIBODY EQUIVOCAL
[2017-06-29 13:36] LABS: HEPATITIS B SURFACE ANTIGEN Nonreactive; HEPATITIS C ANTIBODY Nonreactive
[2017-06-29 14:52] LABS: ANTI-HEPATITIS B CORE (TOTAL) Nonreactive
[2017-06-30] VITALS (23 sets, daily range): BP systolic 109–162; BP diastolic 46–79
[2017-06-30 05:45] LABS: HEMATOCRIT 24.1 % (36.0-46.0); HEMOGLOBIN 7.5 G/DL (11.9-15.5); MCH 28.1 PG (29.0-34.0); MCHC 31.1 G/DL (30.0-36.0); MCV 90.3 FL (83-99); PLATELET COUNT 245 K/uL (156-360); RBC DIS.WIDTH-CV 16.6 % (11.8-14.6); RBC DIS.WIDTH-SD 54.5 % (39-53); RED BLOOD COUNT 2.67 M/uL (3.80-5.20); WHITE BLOOD COUNT 11.1 K/uL (4.1-10.2)
[2017-06-30 06:42] LABS: CHLORIDE 106 MEQ/L (99-109); CREATININE 4.6 MG/DL (0.6-1.3); GFR ESTIMATE (CALCULATED) 12 mL/min/; PHOSPHORUS 6.1 mg/dL (2.5-4.9); POTASSIUM 3.9 MEQ/L (3.7-5.4); SODIUM 141 MEQ/L (136-147); UREA NITROGEN (BUN) 74 mg/dL (9-23)
[2017-06-30 06:43] LABS: GLUCOSE 118 mg/dL (70-99)
[2017-07-01] VITALS (17 sets, daily range): BP systolic 107–162; BP diastolic 55–88
[2017-07-01 05:27] LABS: ALBUMIN 2.2 g/dL (3.2-4.8); CHLORIDE 104 mEq/L (99-109); SODIUM 139 mEq/L (136-147)
[2017-07-01 05:29] LABS: GLUCOSE 149 mg/dL (70-99)
[2017-07-01 05:32] LABS: POTASSIUM 4.7 mEq/L (3.7-5.4)
[2017-07-01 05:33] LABS: GFR ESTIMATE (CALCULATED) 11 mL/min/; PHOSPHORUS 5.1 mg/dL (2.5-4.9)
[2017-07-01 05:34] LABS: UREA NITROGEN (BUN) 81 mg/dL (9-23)
[2017-07-02] VITALS (13 sets, daily range): BP systolic 119–158; BP diastolic 63–80
[2017-07-02 05:12] LABS: HEMATOCRIT 26.6 % (36.0-46.0); HEMOGLOBIN 8.7 G/DL (11.9-15.5); MCH 28.7 PG (29.0-34.0); MCHC 32.7 G/DL (30.0-36.0); MCV 87.8 FL (83-99); NRBC (%) 0.2 /100 WBC (0-0); PLATELET COUNT 244 K/uL (156-360); RBC DIS.WIDTH-CV 15.8 % (11.8-14.6); RBC DIS.WIDTH-SD 50.5 % (39-53); RED BLOOD COUNT 3.03 M/uL (3.80-5.20); WHITE BLOOD COUNT 10.6 K/uL (4.1-10.2)
[2017-07-02 05:13] LABS: GLUCOSE 38 mg/dL (70-99)
[2017-07-02 05:31] LABS: ALBUMIN 2.4 g/dL (3.2-4.8)
[2017-07-02 05:32] LABS: CHLORIDE 105 mEq/L (99-109); SODIUM 141 mEq/L (136-147)
[2017-07-02 05:37] LABS: GFR ESTIMATE (CALCULATED) 17 mL/min/; PHOSPHORUS 4.1 mg/dL (2.5-4.9)
[2017-07-02 05:38] LABS: GLUCOSE 38 mg/dL (70-99); UREA NITROGEN (BUN) 44 mg/dL (9-23)
[2017-07-02 05:41] LABS: CREATININE 3.3 mg/dL (0.6-1.3)
[2017-07-03 04:09] VITALS: BP 131/63
[2017-07-03 06:16] LABS: ALBUMIN 2.3 G/DL (3.2-4.8); CHLORIDE 103 MEQ/L (99-109); POTASSIUM 4.5 MEQ/L (3.7-5.4); SODIUM 138 MEQ/L (136-147)
[2017-07-03 06:22] LABS: CREATININE 2.9 MG/DL (0.6-1.3); GFR ESTIMATE (CALCULATED) 20 mL/min/; GLUCOSE 329 mg/dL (70-99); PHOSPHORUS 4.3 mg/dL (2.5-4.9); UREA NITROGEN (BUN) 36 mg/dL (9-23)
[2017-07-03 07:08] VITALS: BP 134/61
[2017-07-03 11:16] VITALS: BP 154/70
[2017-07-03 15:57] VITALS: BP 116/55
[2017-07-03 20:15] VITALS: BP 160/74
[2017-07-04 00:10] VITALS: BP 162/65
[2017-07-04 06:06] LABS: HEMATOCRIT 24.8 % (36.0-46.0); HEMOGLOBIN 7.7 G/DL (11.9-15.5); MCH 27.9 PG (29.0-34.0); MCV 89.9 FL (83-99); PLATELET COUNT 233 K/uL (156-360); RBC DIS.WIDTH-CV 15.7 % (11.8-14.6); RED BLOOD COUNT 2.76 M/uL (3.80-5.20); WHITE BLOOD COUNT 9.3 K/uL (4.1-10.2)
[2017-07-04 06:40] LABS: ALBUMIN 2.1 G/DL (3.2-4.8); CHLORIDE 105 MEQ/L (99-109); GFR ESTIMATE (CALCULATED) 16 mL/min/; PHOSPHORUS 4.6 mg/dL (2.5-4.9); SODIUM 141 MEQ/L (136-147); UREA NITROGEN (BUN) 51 mg/dL (9-23)
[2017-07-04 06:44] LABS: CREATININE 3.6 MG/DL (0.6-1.3); GLUCOSE 66 mg/dL (70-99)
[2017-07-04 07:24] VITALS: BP 131/62
[2017-07-04 13:09] VITALS: BP 138/65
[2017-07-04 15:00] VITALS: BP 148/67
[2017-07-04 21:04] VITALS: BP 128/62
[2017-07-04 23:52] VITALS: BP 136/61
[2017-07-05 06:16] LABS: BASOPHIL (%) 0.2 % (0-1); EOSINOPHIL (%) 4.6 % (0-5); EOSINOPHIL COUNT 0.4 K/uL (0-0.3); HEMATOCRIT 25.9 % (36.0-46.0); HEMOGLOBIN 8.1 G/DL (11.9-15.5); IMMATURE GRANULOCYTE (%) 0.7 % (0.0-0.7); LYMPHOCYTE (%) 24.1 % (15-42); LYMPHOCYTE COUNT 2.3 K/uL (1.0-2.8); MCH 28.3 PG (29.0-34.0); MCHC 31.3 G/DL (30.0-36.0); MCV 90.6 FL (83-99); MONOCYTE (%) 11.1 % (3-12); MONOCYTE COUNT 1.1 K/uL (0-0.8); NEUTROPHIL (%) 59.3 % (45-76); NEUTROPHIL COUNT 5.7 K/uL (1.8-6.4); PLATELET COUNT 252 K/uL (156-360); RBC DIS.WIDTH-CV 15.9 % (11.8-14.6); RBC DIS.WIDTH-SD 52.4 % (39-53); RED BLOOD COUNT 2.86 M/uL (3.80-5.20); WHITE BLOOD COUNT 9.6 K/uL (4.1-10.2)
[2017-07-05 07:15] VITALS: BP 138/76
[2017-07-05 07:36] LABS: ALBUMIN 2.3 G/DL (3.2-4.8); CHLORIDE 101 MEQ/L (99-109); CREATININE 2.9 MG/DL (0.6-1.3); GFR ESTIMATE (CALCULATED) 20 mL/min/; GLUCOSE 244 mg/dL (70-99); POTASSIUM 4.7 MEQ/L (3.7-5.4); SODIUM 138 MEQ/L (136-147); UREA NITROGEN (BUN) 33 mg/dL (9-23)
[2017-07-05 16:34] VITALS: BP 130/66
[2017-07-06 00:47] VITALS: BP 118/56
[2017-07-06 06:37] LABS: BASOPHIL (%) 0.4 % (0-1); EOSINOPHIL (%) 5.1 % (0-5); EOSINOPHIL COUNT 0.5 K/uL (0-0.3); HEMATOCRIT 26.4 % (36.0-46.0); IMMATURE GRANULOCYTE (%) 0.9 % (0.0-0.7); LYMPHOCYTE (%) 26.2 % (15-42); LYMPHOCYTE COUNT 2.7 K/uL (1.0-2.8); MCH 27.3 PG (29.0-34.0); MCHC 30.3 G/DL (30.0-36.0); MCV 90.1 FL (83-99); MONOCYTE (%) 11.6 % (3-12); MONOCYTE COUNT 1.2 K/uL (0-0.8); NEUTROPHIL (%) 55.8 % (45-76); NEUTROPHIL COUNT 5.7 K/uL (1.8-6.4); PLATELET COUNT 270 K/uL (156-360); RBC DIS.WIDTH-CV 16.1 % (11.8-14.6); RBC DIS.WIDTH-SD 52.7 % (39-53); RED BLOOD COUNT 2.93 M/uL (3.80-5.20); WHITE BLOOD COUNT 10.1 K/uL (4.1-10.2)
[2017-07-06 06:55] LABS: ALBUMIN 2.3 G/DL (3.2-4.8); CHLORIDE 102 MEQ/L (99-109); GFR ESTIMATE (CALCULATED) 13 mL/min/; GLUCOSE 123 mg/dL (70-99); PHOSPHORUS 3.8 mg/dL (2.5-4.9); POTASSIUM 4.5 MEQ/L (3.7-5.4); SODIUM 138 MEQ/L (136-147); UREA NITROGEN (BUN) 47 mg/dL (9-23)
[2017-07-06 06:56] LABS: CREATININE 4.1 MG/DL (0.6-1.3)
[2017-07-06 07:40] VITALS: BP 114/67
[2017-07-06 14:20] VITALS: BP 138/70
[2017-07-06 15:10] VITALS: BP 154/72
[2017-07-06 21:40] VITALS: BP 150/78
[2017-07-06 23:42] VITALS: BP 131/62
[2017-07-07 06:27] LABS: ALBUMIN 2.3 G/DL (3.2-4.8); CHLORIDE 102 MEQ/L (99-109); GFR ESTIMATE (CALCULATED) 20 mL/min/; PHOSPHORUS 3.1 mg/dL (2.5-4.9); POTASSIUM 4.1 MEQ/L (3.7-5.4); SODIUM 139 MEQ/L (136-147); UREA NITROGEN (BUN) 24 mg/dL (9-23)
[2017-07-07 06:29] LABS: CREATININE 2.9 MG/DL (0.6-1.3); GLUCOSE 92 mg/dL (70-99)
[2017-07-07 07:06] VITALS: BP 127/65
[2017-07-07 15:30] VITALS: BP 126/65
[2017-07-07 23:43] VITALS: BP 116/56
[2017-07-08 07:03] LABS: ALBUMIN 2.6 G/DL (3.2-4.8); CHLORIDE 97 MEQ/L (99-109); GLUCOSE 92 mg/dL (70-99); POTASSIUM 4.9 MEQ/L (3.7-5.4); SODIUM 137 MEQ/L (136-147)
[2017-07-08 07:04] LABS: CREATININE 4.1 MG/DL (0.6-1.3); GFR ESTIMATE (CALCULATED) 13 mL/min/; PHOSPHORUS 4.9 mg/dL (2.5-4.9); UREA NITROGEN (BUN) 44 mg/dL (9-23)
[2017-07-08 07:23] VITALS: BP 147/68
[2017-07-08 08:00] LABS: BASOPHIL (%) 0.4 % (0-1); BASOPHIL COUNT 0.1 K/uL (0-0.1); EOSINOPHIL (%) 4.1 % (0-5); EOSINOPHIL COUNT 0.5 K/uL (0-0.3); HEMATOCRIT 27.7 % (36.0-46.0); HEMOGLOBIN 8.5 G/DL (11.9-15.5); IMMATURE GRANULOCYTE (%) 1.1 % (0.0-0.7); LYMPHOCYTE COUNT 2.5 K/uL (1.0-2.8); MCH 27.8 PG (29.0-34.0); MCHC 30.7 G/DL (30.0-36.0); MCV 90.5 FL (83-99); MONOCYTE (%) 10.1 % (3-12); MONOCYTE COUNT 1.3 K/uL (0-0.8); NEUTROPHIL (%) 64.3 % (45-76); NEUTROPHIL COUNT 8.1 K/uL (1.8-6.4); NRBC (%) 0.2 /100 WBC (0-0); PLATELET COUNT 297 K/uL (156-360); RBC DIS.WIDTH-CV 16.3 % (11.8-14.6); RBC DIS.WIDTH-SD 53.3 % (39-53); RED BLOOD COUNT 3.06 M/uL (3.80-5.20); WHITE BLOOD COUNT 12.7 K/uL (4.1-10.2)
[2017-07-08 11:18] VITALS: BP 127/64
[2017-07-08 16:22] VITALS: BP 139/63
[2017-07-08 23:47] VITALS: BP 119/66
[2017-07-09 07:59] VITALS: BP 141/74
[2017-07-09 16:02] VITALS: BP 108/58
[2017-07-09 22:17] VITALS: BP 112/64
[2017-07-10 00:16] VITALS: BP 114/62
[2017-07-10 06:32] LABS: HEMOGLOBIN 9.1 G/DL (11.9-15.5); MCH 28.4 PG (29.0-34.0); MCHC 31.4 G/DL (30.0-36.0); MCV 90.6 FL (83-99); NRBC (%) 0.1 /100 WBC (0-0); PLATELET COUNT 261 K/uL (156-360); RBC DIS.WIDTH-CV 16.5 % (11.8-14.6); WHITE BLOOD COUNT 13.9 K/uL (4.1-10.2)
[2017-07-10 07:05] VITALS: BP 140/68
[2017-07-10 07:07] LABS: ALBUMIN 2.5 G/DL (3.2-4.8); CHLORIDE 92 MEQ/L (99-109); GFR ESTIMATE (CALCULATED) 14 mL/min/; PHOSPHORUS 5.2 mg/dL (2.5-4.9); POTASSIUM 4.7 MEQ/L (3.7-5.4); SODIUM 134 MEQ/L (136-147); UREA NITROGEN (BUN) 47 mg/dL (9-23)
[2017-07-10 07:08] LABS: GLUCOSE 220 mg/dL (70-99)
[2017-07-10 07:49] LABS: INTACT PARATHYROID HORMONE 313 pg/mL (10-69)
[2017-07-10 12:35] VITALS: BP 129/61
[2017-07-10 15:10] VITALS: BP 108/67
[2017-07-10 23:11] VITALS: BP 108/59
[2017-07-11 06:19] LABS: HEMATOCRIT 27.1 % (36.0-46.0); HEMOGLOBIN 8.4 G/DL (11.9-15.5); MCH 28.4 PG (29.0-34.0); MCV 91.6 FL (83-99); PLATELET COUNT 242 K/uL (156-360); RBC DIS.WIDTH-CV 16.8 % (11.8-14.6); RED BLOOD COUNT 2.96 M/uL (3.80-5.20); WHITE BLOOD COUNT 12.6 K/uL (4.1-10.2)
[2017-07-11 06:57] LABS: CHLORIDE 101 MEQ/L (99-109); GFR ESTIMATE (CALCULATED) 17 mL/min/; GLUCOSE 226 mg/dL (70-99); POTASSIUM 4.5 MEQ/L (3.7-5.4); SODIUM 137 MEQ/L (136-147); UREA NITROGEN (BUN) 35 mg/dL (9-23)
[2017-07-11 07:00] LABS: CREATININE 3.3 MG/DL (0.6-1.3)
[2017-07-11 07:28] VITALS: BP 115/60
[2017-07-11 16:14] VITALS: BP 116/56
[2017-07-11 23:25] VITALS: BP 99/54
[2017-07-12 08:10] VITALS: BP 130/71
[2017-07-12 16:32] VITALS: BP 136/66
[2017-07-12 23:33] VITALS: BP 119/56
[2017-07-13 06:34] LABS: HEMATOCRIT 27.2 % (36.0-46.0); HEMOGLOBIN 8.3 G/DL (11.9-15.5); MCHC 30.5 G/DL (30.0-36.0); MCV 91.9 FL (83-99); PLATELET COUNT 226 K/uL (156-360); RBC DIS.WIDTH-CV 17.1 % (11.8-14.6); RBC DIS.WIDTH-SD 57.1 % (39-53); RED BLOOD COUNT 2.96 M/uL (3.80-5.20); WHITE BLOOD COUNT 11.5 K/uL (4.1-10.2)
[2017-07-13 06:58] LABS: CHLORIDE 104 MEQ/L (99-109); GFR ESTIMATE (CALCULATED) 11 mL/min/; POTASSIUM 4.9 MEQ/L (3.7-5.4); SODIUM 139 MEQ/L (136-147)
[2017-07-13 07:32] LABS: CREATININE 4.8 MG/DL (0.6-1.3); GLUCOSE 50 mg/dL (70-99); UREA NITROGEN (BUN) 76 mg/dL (9-23)
[2017-07-13] MEDS ORDERED: RENVELA800 MG PO (15:14)
[2017-07-13] MEDS ORDERED: FUROSEMIDE40 MG PO (15:14)
[2017-07-13] MEDS ORDERED: NOVOLIN N100 UNITS/ SC (15:14)
[2017-07-13] MEDS ORDERED: LOSARTAN POTASS50 MG PO (15:14)
[2017-07-13] MEDS ORDERED: CALCIUM ACETAT667 MG PO (15:22)
[2017-07-13 16:47] VITALS: BP 143/87
== END 2017-07-13 17:47 | disposition home or self-care (01) | DRG 682 ==
LOC: EME 12:45 → 4EAST 17:42 → 5EAST 17:42 → 4WEST 17:42 → EDOF 17:42 → ENRESERV 17:43 → 4EAST 22:36 → ENRESERV 06-27 13:40 → 4WEST 06-27 14:14 → ENRESERV 07-02 13:06 → 5EAST 07-02 16:39
PROVIDERS: Emergency Medicine; Hospitalist; Internal Medicine; Internal Medicine Critical Care Medicine; Internal Medicine Nephrology; Physician Assistant; Surgery
DX: N17.9 Acute kidney failure, unspecified (principal); J96.01 Acute respiratory failure with hypoxia; E87.79 Other fluid overload; J18.9 Pneumonia, unspecified organism; I12.0 Hypertensive chronic kidney disease with stage 5 chronic kidney disease or end stage renal disease; E10.21 Type 1 diabetes mellitus with diabetic nephropathy; E10.22 Type 1 diabetes mellitus with diabetic chronic kidney disease; N18.6 End stage renal disease; E10.65 Type 1 diabetes mellitus with hyperglycemia; E87.5 Hyperkalemia; E87.2 Acidosis; F32.9 Major depressive disorder, single episode, unspecified; D63.1 Anemia in chronic kidney disease; Z79.4 Long term (current) use of insulin
CPT/HCPCS: 36600; 71045; 71250; 78582; 80048; 80048 91; 80069; 80202; 81003; 82010; 82306; 82803; 82948; 83036; 83540; 83605; 83735; 83880; 83970; 84100; 84466; 84484; 84702; 84999; 85025; 85027; 85379; 85610; 85730; 86704; 86706; 86803; 87040; 87340; 87502; 87641; 93005; 93970; 94010; 94640; 94640 76; 94760; 94799; 97530 GO; 97530 GP; 99202; 99281; 99285; A9539; A9540; C1788; C9113; J0690; J0692; J0881; J1644; J1815; J1940; J2250; J2765; J2930; J3010; J3370; J7030; J7050; J7070

== ENCOUNTER 2017-07-15 06:13 | Emergency (ER) | payer SELFPAY ==
[~2017-07-15] VITALS: Ht 149.9 cm; Wt 56.1 kg
[~2017-07-15 06:13] MED LIST changes: +CALCIUM ACETAT667 MG PO; +FUROSEMIDE40 MG PO; +LOSARTAN POTASS50 MG PO; +RENVELA800 MG PO
[2017-07-15 09:03] LABS: HEMATOCRIT 29.8 % (36.0-46.0); HEMOGLOBIN 9.4 G/DL (11.9-15.5); MCH 28.8 PG (29.0-34.0); MCHC 31.5 G/DL (30.0-36.0); MCV 91.4 FL (83-99); PLATELET COUNT 252 K/uL (156-360); RBC DIS.WIDTH-CV 16.8 % (11.8-14.6); RBC DIS.WIDTH-SD 56.8 % (39-53); RED BLOOD COUNT 3.26 M/uL (3.80-5.20); WHITE BLOOD COUNT 10.6 K/uL (4.1-10.2)
[2017-07-15 10:26] LABS: CHLORIDE 98 MEQ/L (99-109); CREATININE 4.4 MG/DL (0.6-1.3); GFR ESTIMATE (CALCULATED) 12 mL/min/; POTASSIUM 4.8 MEQ/L (3.7-5.4); SODIUM 135 MEQ/L (136-147); UREA NITROGEN (BUN) 67 mg/dL (9-23)
[2017-07-15 10:29] LABS: GLUCOSE 205 mg/dL (70-99)
[2017-07-15 11:28] VITALS: BP 120/63
== END 2017-07-15 11:29 | disposition home or self-care (01) ==
LOC: EME 06:13
PROVIDERS: Internal Medicine Nephrology
DX: I12.0 Hypertensive chronic kidney disease with stage 5 chronic kidney disease or end stage renal disease (principal); E11.22 Type 2 diabetes mellitus with diabetic chronic kidney disease; N18.6 End stage renal disease; Z99.2 Dependence on renal dialysis; Z79.4 Long term (current) use of insulin
CPT/HCPCS: 80048; 85027; 99281; 99284; J1644

== ENCOUNTER 2017-07-17 06:24 | Emergency (ER) | payer SELFPAY ==
[~2017-07-17] VITALS: Ht 149.9 cm; Wt 56.9 kg
[2017-07-17 11:20] VITALS: BP 128/71
== END 2017-07-17 11:47 | disposition home or self-care (01) ==
LOC: EME 06:24
PROC: 5A1D70Z Performance of Urinary Filtration, Intermittent, Less than 6 Hours Per Day (ICD-10-PCS; principal; 2017-07-17)
DX: Z99.2 Dependence on renal dialysis (principal); I12.9 Hypertensive chronic kidney disease with stage 1 through stage 4 chronic kidney disease, or unspecified chronic kidney disease; N18.9 Chronic kidney disease, unspecified; F32.9 Major depressive disorder, single episode, unspecified
CPT/HCPCS: 99281; 99284; J1644

== ENCOUNTER 2017-07-20 06:19 | Emergency (ER) | payer SELFPAY ==
[~2017-07-20] VITALS: Ht 149.9 cm; Wt 55.7 kg
[2017-07-20 08:18] LABS: BASOPHIL (%) 0.5 % (0-1); EOSINOPHIL (%) 5.4 % (0-5); EOSINOPHIL COUNT 0.4 K/uL (0-0.3); HEMATOCRIT 31.9 % (36.0-46.0); HEMOGLOBIN 9.9 G/DL (11.9-15.5); IMMATURE GRANULOCYTE (%) 0.3 % (0.0-0.7); LYMPHOCYTE (%) 22.9 % (15-42); LYMPHOCYTE COUNT 1.7 K/uL (1.0-2.8); MCH 28.6 PG (29.0-34.0); MCV 92.2 FL (83-99); MONOCYTE (%) 8.8 % (3-12); MONOCYTE COUNT 0.7 K/uL (0-0.8); NEUTROPHIL (%) 62.1 % (45-76); NEUTROPHIL COUNT 4.6 K/uL (1.8-6.4); PLATELET COUNT 302 K/uL (156-360); RBC DIS.WIDTH-CV 16.1 % (11.8-14.6); RBC DIS.WIDTH-SD 54.4 % (39-53); RED BLOOD COUNT 3.46 M/uL (3.80-5.20); WHITE BLOOD COUNT 7.5 K/uL (4.1-10.2)
[2017-07-20 09:05] LABS: CHLORIDE 105 MEQ/L (99-109); CREATININE 4.4 MG/DL (0.6-1.3); GFR ESTIMATE (CALCULATED) 12 mL/min/; GLUCOSE 71 mg/dL (70-99); POTASSIUM 5.3 MEQ/L (3.7-5.4); SODIUM 139 MEQ/L (136-147); UREA NITROGEN (BUN) 71 mg/dL (9-23)
[2017-07-20 09:06] LABS: PHOSPHORUS 8.8 mg/dL (2.5-4.9)
[2017-07-20 12:02] VITALS: BP 140/78
== END 2017-07-20 12:04 | disposition home or self-care (01) ==
LOC: EME 06:19
PROVIDERS: Internal Medicine Nephrology
PROC: 5A1D70Z Performance of Urinary Filtration, Intermittent, Less than 6 Hours Per Day (ICD-10-PCS; principal; 2017-07-20)
DX: I12.9 Hypertensive chronic kidney disease with stage 1 through stage 4 chronic kidney disease, or unspecified chronic kidney disease (principal); N18.9 Chronic kidney disease, unspecified; Z99.2 Dependence on renal dialysis; E87.5 Hyperkalemia; R53.1 Weakness; F32.9 Major depressive disorder, single episode, unspecified
CPT/HCPCS: 80069; 85025; 99281; 99284; J1644

== ENCOUNTER 2017-07-22 06:12 | Emergency (ER) | payer SELFPAY ==
[~2017-07-22] VITALS: Ht 149.9 cm; Wt 54.0 kg
[2017-07-22 10:18] LABS: HEPATITIS B SURFACE ANTIBODY REACTIVE; HEPATITIS B SURFACE ANTIGEN Nonreactive; HEPATITIS C ANTIBODY Nonreactive
[2017-07-22 10:19] LABS: ANTI-HEPATITIS B CORE (TOTAL) Nonreactive
[2017-07-22 12:11] VITALS: BP 175/82
== END 2017-07-22 12:13 | disposition home or self-care (01) ==
LOC: EME 06:12
PROVIDERS: Internal Medicine Nephrology
DX: N18.6 End stage renal disease (principal); Z99.2 Dependence on renal dialysis; I12.0 Hypertensive chronic kidney disease with stage 5 chronic kidney disease or end stage renal disease; E11.22 Type 2 diabetes mellitus with diabetic chronic kidney disease
CPT/HCPCS: 86704; 86706; 86803; 87340; 99281; 99284

== ENCOUNTER 2017-07-24 06:04 | Emergency (ER) | payer SELFPAY ==
[~2017-07-24] VITALS: Ht 149.9 cm; Wt 55.5 kg
[2017-07-24 11:51] VITALS: BP 176/84
== END 2017-07-24 11:52 | disposition home or self-care (01) ==
LOC: EME 06:04
PROC: 5A1D70Z Performance of Urinary Filtration, Intermittent, Less than 6 Hours Per Day (ICD-10-PCS; principal; 2017-07-24)
DX: I12.0 Hypertensive chronic kidney disease with stage 5 chronic kidney disease or end stage renal disease (principal); N18.6 End stage renal disease; Z99.2 Dependence on renal dialysis; F32.9 Major depressive disorder, single episode, unspecified
CPT/HCPCS: 99281; 99284; J1644

== ENCOUNTER 2017-07-27 06:22 | Emergency (ER) | payer SELFPAY ==
[~2017-07-27] VITALS: Ht 149.9 cm; Wt 56.6 kg
[2017-07-27 08:59] LABS: BASOPHIL (%) 0.3 % (0-1); EOSINOPHIL (%) 3.9 % (0-5); EOSINOPHIL COUNT 0.3 K/uL (0-0.3); HEMATOCRIT 31.8 % (36.0-46.0); HEMOGLOBIN 10.1 G/DL (11.9-15.5); IMMATURE GRANULOCYTE (%) 0.3 % (0.0-0.7); LYMPHOCYTE (%) 21.6 % (15-42); LYMPHOCYTE COUNT 1.7 K/uL (1.0-2.8); MCH 28.8 PG (29.0-34.0); MCHC 31.8 G/DL (30.0-36.0); MCV 90.6 FL (83-99); MONOCYTE (%) 7.7 % (3-12); MONOCYTE COUNT 0.6 K/uL (0-0.8); NEUTROPHIL (%) 66.2 % (45-76); NEUTROPHIL COUNT 5.1 K/uL (1.8-6.4); PLATELET COUNT 222 K/uL (156-360); RBC DIS.WIDTH-CV 14.6 % (11.8-14.6); RBC DIS.WIDTH-SD 48.9 % (39-53); RED BLOOD COUNT 3.51 M/uL (3.80-5.20); WHITE BLOOD COUNT 7.8 K/uL (4.1-10.2)
[2017-07-27 09:18] LABS: CHLORIDE 106 MEQ/L (99-109); CREATININE 4.3 MG/DL (0.6-1.3); GFR ESTIMATE (CALCULATED) 13 mL/min/; GLUCOSE 203 mg/dL (70-99); POTASSIUM 4.6 MEQ/L (3.7-5.4); SODIUM 138 MEQ/L (136-147); UREA NITROGEN (BUN) 64 mg/dL (9-23)
[2017-07-27 09:38] LABS: PHOSPHORUS 5.3 mg/dL (2.5-4.9)
[2017-07-27 14:30] VITALS: BP 143/82
== END 2017-07-27 15:18 | disposition home or self-care (01) ==
LOC: EME 06:22
PROVIDERS: Internal Medicine
PROC: 5A1D70Z Performance of Urinary Filtration, Intermittent, Less than 6 Hours Per Day (ICD-10-PCS; principal; 2017-07-27)
DX: Z49.31 Encounter for adequacy testing for hemodialysis (principal); Z99.2 Dependence on renal dialysis; E11.22 Type 2 diabetes mellitus with diabetic chronic kidney disease; I12.9 Hypertensive chronic kidney disease with stage 1 through stage 4 chronic kidney disease, or unspecified chronic kidney disease; N18.9 Chronic kidney disease, unspecified; F32.9 Major depressive disorder, single episode, unspecified
CPT/HCPCS: 80069; 85025; 99281; 99284; J0881

== ENCOUNTER 2017-07-29 06:17 | Emergency (ER) | payer SELFPAY ==
[~2017-07-29] VITALS: Ht 152.4 cm; Wt 56.0 kg
[2017-07-29 11:30] VITALS: BP 178/78
== END 2017-07-29 11:30 | disposition home or self-care (01) ==
LOC: EME 06:17
DX: N18.6 End stage renal disease (principal); I12.0 Hypertensive chronic kidney disease with stage 5 chronic kidney disease or end stage renal disease; E11.22 Type 2 diabetes mellitus with diabetic chronic kidney disease; Z99.2 Dependence on renal dialysis; Z79.4 Long term (current) use of insulin
CPT/HCPCS: 99281; 99283; J1644

== ENCOUNTER 2017-07-31 06:08 | Emergency (ER) | payer SELFPAY ==
[~2017-07-31] VITALS: Ht 149.9 cm; Wt 54.8 kg
[2017-07-31 11:30] VITALS: BP 168/88
== END 2017-07-31 11:30 | disposition home or self-care (01) ==
LOC: EME 06:08
DX: N18.6 End stage renal disease (principal); Z99.2 Dependence on renal dialysis
CPT/HCPCS: 99281; 99284

== ENCOUNTER 2017-08-03 05:55 | Emergency (ER) | payer SELFPAY ==
[~2017-08-03] VITALS: Ht 149.9 cm; Wt 55.1 kg
[2017-08-03 08:08] LABS: BASOPHIL (%) 0.2 % (0-1); EOSINOPHIL (%) 5.2 % (0-5); EOSINOPHIL COUNT 0.5 K/uL (0-0.3); HEMOGLOBIN 10.3 G/DL (11.9-15.5); IMMATURE GRANULOCYTE (%) 0.2 % (0.0-0.7); LYMPHOCYTE (%) 23.7 % (15-42); LYMPHOCYTE COUNT 2.2 K/uL (1.0-2.8); MCH 29.3 PG (29.0-34.0); MCHC 32.2 G/DL (30.0-36.0); MCV 91.2 FL (83-99); MONOCYTE (%) 9.1 % (3-12); MONOCYTE COUNT 0.8 K/uL (0-0.8); NEUTROPHIL (%) 61.6 % (45-76); NEUTROPHIL COUNT 5.6 K/uL (1.8-6.4); PLATELET COUNT 240 K/uL (156-360); RBC DIS.WIDTH-CV 14.6 % (11.8-14.6); RBC DIS.WIDTH-SD 48.2 % (39-53); RED BLOOD COUNT 3.51 M/uL (3.80-5.20); WHITE BLOOD COUNT 9.1 K/uL (4.1-10.2)
[2017-08-03 08:17] LABS: ALBUMIN 3.1 G/DL (3.2-4.8); CHLORIDE 105 MEQ/L (99-109); POTASSIUM 5.1 MEQ/L (3.7-5.4); SODIUM 138 MEQ/L (136-147)
[2017-08-03 08:23] LABS: CREATININE 4.8 MG/DL (0.6-1.3); GFR ESTIMATE (CALCULATED) 11 mL/min/; GLUCOSE 92 mg/dL (70-99); PHOSPHORUS 5.4 mg/dL (2.5-4.9); UREA NITROGEN (BUN) 69 mg/dL (9-23)
[2017-08-03 11:43] VITALS: BP 158/87
== END 2017-08-03 11:44 | disposition home or self-care (01) ==
LOC: EME 05:55
PROVIDERS: Internal Medicine Nephrology
PROC: 5A1D70Z Performance of Urinary Filtration, Intermittent, Less than 6 Hours Per Day (ICD-10-PCS; principal; 2017-08-03)
DX: N18.6 End stage renal disease (principal); Z99.2 Dependence on renal dialysis
CPT/HCPCS: 80069; 85025; 99281; 99284; J0881; J1644

== ENCOUNTER 2017-08-05 11:50 | Emergency (ER) | payer SELFPAY ==
[~2017-08-05] VITALS: Ht 149.9 cm; Wt 55.4 kg
[2017-08-05 18:06] VITALS: BP 145/78
== END 2017-08-05 18:07 | disposition home or self-care (01) ==
LOC: EME 11:50
DX: N18.6 End stage renal disease (principal); Z99.2 Dependence on renal dialysis; I12.0 Hypertensive chronic kidney disease with stage 5 chronic kidney disease or end stage renal disease; R07.89 Other chest pain
CPT/HCPCS: 99281; 99284; J1644

== ENCOUNTER 2017-08-07 06:04 | Emergency (ER) | payer SELFPAY ==
[~2017-08-07] VITALS: Ht 147.3 cm; Wt 53.6 kg
[2017-08-07 11:33] VITALS: BP 152/92
== END 2017-08-07 11:33 | disposition home or self-care (01) ==
LOC: EME 06:04
DX: I12.9 Hypertensive chronic kidney disease with stage 1 through stage 4 chronic kidney disease, or unspecified chronic kidney disease (principal); N18.9 Chronic kidney disease, unspecified; Z99.2 Dependence on renal dialysis; F32.9 Major depressive disorder, single episode, unspecified
CPT/HCPCS: 99281; 99284; J1644

== ENCOUNTER 2017-08-10 06:09 | Emergency (ER) | payer SELFPAY ==
[~2017-08-10] VITALS: Ht 144.8 cm; Wt 55.0 kg
[2017-08-10 06:57] LABS: HEMOGLOBIN 10.8 G/DL (11.9-15.5); MCH 29.1 PG (29.0-34.0); MCHC 32.7 G/DL (30.0-36.0); MCV 88.9 FL (83-99); PLATELET COUNT 257 K/uL (156-360); RBC DIS.WIDTH-SD 45.3 % (39-53); RED BLOOD COUNT 3.71 M/uL (3.80-5.20); WHITE BLOOD COUNT 9.7 K/uL (4.1-10.2)
[2017-08-10 07:29] LABS: CHLORIDE 105 MEQ/L (99-109); CREATININE 4.7 MG/DL (0.6-1.3); GFR ESTIMATE (CALCULATED) 11 mL/min/; GLUCOSE 101 mg/dL (70-99); PHOSPHORUS 6.9 mg/dL (2.5-4.9); POTASSIUM 4.9 MEQ/L (3.7-5.4); SODIUM 135 MEQ/L (136-147); UREA NITROGEN (BUN) 53 mg/dL (9-23)
[2017-08-10 08:28] LABS: BASOPHIL (%) 0.5 % (0-1); EOSINOPHIL (%) 1.5 % (0-5); EOSINOPHIL COUNT 0.1 K/uL (0-0.3); HEMATOCRIT 32.2 % (36.0-46.0); HEMOGLOBIN 10.5 G/DL (11.9-15.5); IMMATURE GRANULOCYTE (%) 0.2 % (0.0-0.7); LYMPHOCYTE (%) 15.8 % (15-42); LYMPHOCYTE COUNT 1.4 K/uL (1.0-2.8); MCH 29.1 PG (29.0-34.0); MCHC 32.6 G/DL (30.0-36.0); MCV 89.2 FL (83-99); MONOCYTE (%) 5.4 % (3-12); MONOCYTE COUNT 0.5 K/uL (0-0.8); NEUTROPHIL (%) 76.6 % (45-76); NEUTROPHIL COUNT 6.7 K/uL (1.8-6.4); PLATELET COUNT 271 K/uL (156-360); RBC DIS.WIDTH-SD 45.9 % (39-53); RED BLOOD COUNT 3.61 M/uL (3.80-5.20); WHITE BLOOD COUNT 8.7 K/uL (4.1-10.2)
[2017-08-10 08:47] LABS: ALBUMIN 3.2 G/DL (3.2-4.8); CHLORIDE 106 MEQ/L (99-109); CREATININE 4.6 MG/DL (0.6-1.3); GFR ESTIMATE (CALCULATED) 12 mL/min/; GLUCOSE 85 mg/dL (70-99); PHOSPHORUS 6.8 mg/dL (2.5-4.9); POTASSIUM 4.9 MEQ/L (3.7-5.4); SODIUM 136 MEQ/L (136-147); UREA NITROGEN (BUN) 51 mg/dL (9-23)
[2017-08-10 11:08] VITALS: BP 109/72
== END 2017-08-10 11:17 | disposition home or self-care (01) ==
LOC: EME 06:09
PROVIDERS: Internal Medicine Nephrology; Nurse Practitioner Family
DX: N18.6 End stage renal disease (principal); Z99.2 Dependence on renal dialysis; I12.0 Hypertensive chronic kidney disease with stage 5 chronic kidney disease or end stage renal disease
CPT/HCPCS: 80048; 80069; 82330; 84100; 85025; 85027; 99281; 99284; J0881; J1644

== ENCOUNTER 2017-08-12 06:45 | Emergency (ER) | payer SELFPAY ==
[~2017-08-12] VITALS: Ht 147.3 cm; Wt 53.7 kg
[2017-08-12 12:04] VITALS: BP 143/80
== END 2017-08-12 13:07 | disposition home or self-care (01) ==
LOC: EME 06:45
PROC: 5A1D70Z Performance of Urinary Filtration, Intermittent, Less than 6 Hours Per Day (ICD-10-PCS; principal; 2017-08-12)
DX: N18.9 Chronic kidney disease, unspecified (principal); Z49.31 Encounter for adequacy testing for hemodialysis; Z99.2 Dependence on renal dialysis
CPT/HCPCS: 99281; 99284

== ENCOUNTER 2017-08-14 06:42 | Emergency (ER) | payer SELFPAY ==
[~2017-08-14] VITALS: Ht 147.3 cm; Wt 52.8 kg
[2017-08-14 11:43] VITALS: BP 149/93
== END 2017-08-14 11:43 | disposition home or self-care (01) ==
LOC: EME 06:42
DX: N18.6 End stage renal disease (principal); Z99.2 Dependence on renal dialysis; I12.0 Hypertensive chronic kidney disease with stage 5 chronic kidney disease or end stage renal disease; Z79.4 Long term (current) use of insulin
CPT/HCPCS: 99281; 99284

== ENCOUNTER 2017-08-16 22:44 | Emergency (ER) | payer SELFPAY ==
[~2017-08-16] VITALS: Ht 147.3 cm; Wt 52.8 kg
[2017-08-17 01:54] VITALS: BP 197/86
== END 2017-08-17 01:55 | disposition home or self-care (01) ==
LOC: EME 22:44
DX: T82.898A Other specified complication of vascular prosthetic devices, implants and grafts, initial encounter (principal); I10 Essential (primary) hypertension; E03.9 Hypothyroidism, unspecified; F32.9 Major depressive disorder, single episode, unspecified; Z99.2 Dependence on renal dialysis
CPT/HCPCS: 99281; 99283

== ENCOUNTER 2017-08-17 07:36 | Emergency (ER) | payer SELFPAY ==
[~2017-08-17] VITALS: Ht 149.9 cm; Wt 52.8 kg
[2017-08-17 10:53] LABS: BASOPHIL (%) 0.5 % (0-1); EOSINOPHIL (%) 2.7 % (0-5); EOSINOPHIL COUNT 0.2 K/uL (0-0.3); HEMATOCRIT 33.5 % (36.0-46.0); IMMATURE GRANULOCYTE (%) 0.2 % (0.0-0.7); LYMPHOCYTE (%) 23.6 % (15-42); LYMPHOCYTE COUNT 1.5 K/uL (1.0-2.8); MCH 28.6 PG (29.0-34.0); MCHC 32.8 G/DL (30.0-36.0); MONOCYTE (%) 7.4 % (3-12); MONOCYTE COUNT 0.5 K/uL (0-0.8); NEUTROPHIL (%) 65.6 % (45-76); NEUTROPHIL COUNT 4.2 K/uL (1.8-6.4); PLATELET COUNT 214 K/uL (156-360); RBC DIS.WIDTH-CV 14.1 % (11.8-14.6); RBC DIS.WIDTH-SD 44.6 % (39-53); RED BLOOD COUNT 3.85 M/uL (3.80-5.20); WHITE BLOOD COUNT 6.4 K/uL (4.1-10.2)
[2017-08-17 11:09] LABS: ALBUMIN 3.1 G/DL (3.2-4.8); CHLORIDE 103 MEQ/L (99-109); POTASSIUM 4.6 MEQ/L (3.7-5.4); SODIUM 135 MEQ/L (136-147)
[2017-08-17 11:15] LABS: CREATININE 5.6 MG/DL (0.6-1.3); GFR ESTIMATE (CALCULATED) 9 mL/min/; GLUCOSE 265 mg/dL (70-99); PHOSPHORUS 7.2 mg/dL (2.5-4.9); UREA NITROGEN (BUN) 72 mg/dL (9-23)
[2017-08-17 11:37] LABS: HEPATITIS B SURFACE ANTIGEN Nonreactive
[2017-08-17 11:38] LABS: HEPATITIS B SURFACE ANTIBODY REACTIVE
[2017-08-17 14:19] VITALS: BP 163/71
== END 2017-08-17 14:19 | disposition home or self-care (01) ==
LOC: EME 07:36
PROVIDERS: Internal Medicine Nephrology
PROC: 5A1D70Z Performance of Urinary Filtration, Intermittent, Less than 6 Hours Per Day (ICD-10-PCS; principal; 2017-08-17)
DX: I12.9 Hypertensive chronic kidney disease with stage 1 through stage 4 chronic kidney disease, or unspecified chronic kidney disease (principal); N18.9 Chronic kidney disease, unspecified; Z99.2 Dependence on renal dialysis
CPT/HCPCS: 80069; 85025; 86706; 87340; 99281; 99284; J0881; J1644

== ENCOUNTER 2017-08-19 06:42 | Emergency (ER) | payer SELFPAY ==
[~2017-08-19] VITALS: Ht 149.9 cm; Wt 51.8 kg
[2017-08-19 06:44] VITALS: BP 154/88
== END 2017-08-19 11:42 | disposition home or self-care (01) ==
LOC: EME 06:42
PROC: 5A1D70Z Performance of Urinary Filtration, Intermittent, Less than 6 Hours Per Day (ICD-10-PCS; principal; 2017-08-19)
DX: N18.6 End stage renal disease (principal); Z99.2 Dependence on renal dialysis
CPT/HCPCS: 99281; 99285

== ENCOUNTER 2017-08-21 06:15 | Emergency (ER) | payer SELFPAY ==
[~2017-08-21] VITALS: Ht 149.9 cm; Wt 51.8 kg
[2017-08-21 10:58] LABS: INTACT PARATHYROID HORMONE 703 pg/mL (10-69)
[2017-08-21 12:35] VITALS: BP 160/91
== END 2017-08-21 12:36 | disposition home or self-care (01) ==
LOC: EME 06:15
PROVIDERS: Emergency Medicine
PROC: 5A1D70Z Performance of Urinary Filtration, Intermittent, Less than 6 Hours Per Day (ICD-10-PCS; principal; 2017-08-21)
DX: N18.6 End stage renal disease (principal); Z99.2 Dependence on renal dialysis
CPT/HCPCS: 83970; 99281; 99284; J1644

== ENCOUNTER 2017-11-17 17:58 | Emergency (ER) | payer OTHER ==
[~2017-11-17] VITALS: Ht 149.9 cm; Wt 55.0 kg
[2017-11-17 20:19] LABS: BASOPHIL (%) 0.4 % (0-1); EOSINOPHIL (%) 3.3 % (0-5); EOSINOPHIL COUNT 0.3 K/uL (0-0.3); HEMATOCRIT 32.7 % (36.0-46.0); HEMOGLOBIN 10.7 G/DL (11.9-15.5); IMMATURE GRANULOCYTE (%) 0.2 % (0.0-0.7); LYMPHOCYTE (%) 25.6 % (15-42); LYMPHOCYTE COUNT 2.4 K/uL (1.0-2.8); MCH 28.5 PG (29.0-34.0); MCHC 32.7 G/DL (30.0-36.0); MCV 87.2 FL (83-99); MONOCYTE (%) 7.2 % (3-12); MONOCYTE COUNT 0.7 K/uL (0-0.8); NEUTROPHIL (%) 63.3 % (45-76); NEUTROPHIL COUNT 5.8 K/uL (1.8-6.4); PLATELET COUNT 322 K/uL (156-360); RBC DIS.WIDTH-CV 16.9 % (11.8-14.6); RBC DIS.WIDTH-SD 54.4 % (39-53); RED BLOOD COUNT 3.75 M/uL (3.80-5.20); WHITE BLOOD COUNT 9.2 K/uL (4.1-10.2)
[2017-11-17 20:31] LABS: CHLORIDE 96 mEq/L (99-109); POTASSIUM 4.6 mEq/L (3.7-5.4); PTT 37.2 SEC (25-37); SODIUM 135 mEq/L (136-147)
[2017-11-17 20:33] LABS: GLUCOSE 226 mg/dL (70-99)
[2017-11-17 20:37] LABS: CREATININE 4.7 mg/dL (0.6-1.3); GFR ESTIMATE (CALCULATED) 11 mL/min/
[2017-11-17 20:38] LABS: UREA NITROGEN (BUN) 40 mg/dL (9-23)
[2017-11-18 02:14] VITALS: BP 141/72
== END 2017-11-18 02:16 | disposition home or self-care (01) ==
LOC: EME 17:58
PROVIDERS: Physician Assistant
DX: R13.10 Dysphagia, unspecified (principal); R60.0 Localized edema; I12.0 Hypertensive chronic kidney disease with stage 5 chronic kidney disease or end stage renal disease; E11.22 Type 2 diabetes mellitus with diabetic chronic kidney disease; N18.6 End stage renal disease; Z99.2 Dependence on renal dialysis; Z79.4 Long term (current) use of insulin; F32.9 Major depressive disorder, single episode, unspecified
CPT/HCPCS: 70491; 71260; 80048; 85025; 85610; 85730; 93005; 93971; 99281; 99284

== ENCOUNTER 2018-01-08 14:29 | Emergency (ER) | payer SELFPAY ==
[~2018-01-08] VITALS: Ht 154.9 cm; Wt 52.6 kg
[2018-01-08] MEDS ORDERED: KEFLEX500 MG PO (15:03)
[2018-01-08 15:19] VITALS: BP 174/94
== END 2018-01-08 15:19 | disposition home or self-care (01) ==
LOC: EME 14:29
DX: S91.102A Unspecified open wound of left great toe without damage to nail, initial encounter (principal); X58.XXXA Exposure to other specified factors, initial encounter; I12.0 Hypertensive chronic kidney disease with stage 5 chronic kidney disease or end stage renal disease; E11.22 Type 2 diabetes mellitus with diabetic chronic kidney disease; N18.6 End stage renal disease; Z99.2 Dependence on renal dialysis; F32.9 Major depressive disorder, single episode, unspecified
CPT/HCPCS: 99281; 99284